=== PATIENT | male | born 1960 | race Caucasian/White ===

== ENCOUNTER 2020-01-12 08:22 | Observation (INO) | payer BC, SELFPAY ==
[2020-01-12] VITALS (19 sets, daily range): BP systolic 111–141; BP diastolic 7–90; PULSE 63–82; RESP 13–26; TEMP 36.4–36.7; O2SAT 89–98; BMI 31.1; BMI 32.5; BMI 34.4
--- NOTE | 2020-01-12 | IR_ITS ---
APPROVED REPORT Patient Location: [facility] Specialist: ROVERTO Musa RT (R) PROCEDURES Left heart catheterization Left ventriculogram Selective coronary angiogram FFR to the right coronary artery INDICATION Unstable angina Informed consent was obtained prior to the procedure. COMPLICATIONS NONE Estimated Blood Loss: LESS THNA 10 ML TECHNIQUE One percent lidocaine used to anesthetize the right anterior aspect of the wrist. The right radial artery was accessed via the Seldinger technique. A 6 American sheath was placed in the right radial artery. 2.5 mg of verapamil, 800 mcg of nitroglycerin, 1mg Lidocaine and 5000 U Heparin were given through the arterial sheath. The trap catheter was also used to perform left heart catheterization, left ventriculogram and selective coronary angiogram. At the end of the diagnostic angiogram therapeutic heparin was administered and and I Grisel right guide catheter was placed in the ascending aorta. The FFR wire was normalized and the catheter was used to intubate the right coronary artery. Adenosine was infused on 2 occasions with the first FFR index reaching 0.82 and the second FFR achieving 0.86. Neither FFR of the right coronary artery reached hemodynamic significance therefore the apparatus was removed the sheath was removed and hemostasis was achieved using TR banding patient was transferred to the postop holding in stable condition ANGIOGRAPHIC RESULTS The left main artery Has an eccentric 10% stenosis The left anterior descending artery Has proximal and mid vessel luminal irregularities with diffuse 10 to 20% stenoses. The circumflex artery Is a nondominant vessel still giving rise to a large 3.5 mm circumflex artery. Mild 10% luminal irregularities are present proximally and distally The right coronary artery Is a large caliber dominant vessel with a proximal concentric 40% stenosis. There is a small branch originating at this plaque which is less than 1 mm in size and has subtotal occlusion proximally. The RV marginal branch is widely patent. Distally the vessel has 10 to 20% luminal irregularities The GARCIA ventriculogram reveals Normal 60% The left ventricular end-diastolic pressure 20 mmHg IMPRESSION Coronary disease as described above Right coronary artery lesion which produced an FFR index between 0.82 and 0.86 Normal ejection fraction Mildly elevated LVEDP PLAN 1. Medical management for coronary disease 2. Recommend aggressive statin therapy with goal LDL less than 55 3. Aggressive risk factor modification 4. Avoidance of tobacco products 5. If the troponin reaches a positive number I would recommend dual antiplatelet therapy for 1 year Electronically signed by : Mikey Stephen, 01/12/2020 14:56:13
--- NOTE | 2020-01-12 08:19 | ECG_ITS ---
APPROVED REPORT Exam: Resting ECG HR:81 bpm ECG Measurements Heart Rate 81 AXES MD 168 P 51 QRSd 140 QRS 46 QT 420 T 38 QTc 487 Conclusion Normal sinus rhythm Right bundle branch block Abnormal ECG Electronically signed by : Chance Wren, 01/12/2020 17:42:27
--- NOTE | 2020-01-12 08:24 | XR_ITS ---
PROCEDURE: XR CHEST PORTABLE CLINICAL HISTORY: chest pain COMPARISON: No exams were available for comparison FINDINGS: The cardiomediastinal silhouette and pulmonary vascularity are within normal limits. The lungs are clear without infiltrates, suspicious nodules, or pleural effusions. No acute bony abnormalities. IMPRESSION: No acute findings. Dictated by: Francisco J Linton MD 01/12/2020 13:58 Francisco J Linton MD in [facility] 01/12/2020 13:58
--- NOTE | 2020-01-12 08:29 | ECG_ITS ---
APPROVED REPORT Exam: Resting ECG HR:78 bpm ECG Measurements Heart Rate 78 AXES IL 172 P 63 QRSd 138 QRS 70 QT 424 T 54 QTc 483 Conclusion Normal sinus rhythm Right bundle branch block Abnormal ECG Electronically signed by : Chance Wren, 01/12/2020 17:42:23
[2020-01-12 08:35] LABS: Basophils # 0.1 K/mm3 (0-0.2); Basophils % 0.7 % (0.1-2.0); Eosinophils # 0.2 K/mm3 (0.0-0.4); Hematocrit 53.1 % (42.0-52.0); Hemoglobin 17.1 g/dL (14.1-18.0); Lymphocytes # 3.9 K/mm3 (0.7-4.5); Lymphocytes % 32.7 % (10-50); Mean Corpuscular HGB Conc 32.3 g/dL (31.8-35.4); Mean Corpuscular Hemoglobin 29.8 pg (27.0-31.2); Mean Corpuscular Volume 92.5 fl (80-94); Mean Platelet Volume 7.5 fl (7.4-10.4); Monocytes # 0.8 K/mm3 (0.1-1.0); Monocytes % 6.9 % (1.7-9.3); Neutrophils # 6.8 K/mm3 (1.8-7.8); Neutrophils % 57.7 % (37.0-80.0); Platelet Count 238 K/mm3 (142-424); Red Blood Count 5.74 M/mm3 (4.60-6.20); Red Cell Distribution Width 13.6 % (11.5-17.5); White Blood Count 11.8 K/mm3 (4.8-10.8)
--- NOTE | 2020-01-12 08:46 | HMH.EDCP ---
ED Disposition Clinical Impression: Chest pain Qualifiers: Ischemic chest pain type: stable angina pectoris Pneumonia Qualifiers: Pneumonia type: due to unspecified organism Laterality: right Lung location: lower lobe of lung Qualified Code(s): J18.9 - Pneumonia, unspecified organism Disposition: Admitted As Inpatient Condition on Discharge: Undetermined Referrals: PCP,No [Non-Staff] - - Critical Care Critical Care Time: No Attestation: On 01/12/20, the high probability of a clinically significant, sudden or life threatening deterioration of the following system(s) required my full and direct attention, intervention and personal management. The time I documented below is in addition to time spent performing reported procedures but includes the following listed in this critical care notation. Medical Decision Making - Jorge Inquiry Pt receiving controlled substance: No Vital Signs: 01/12/20 08:22 01/12/20 08:56 01/12/20 11:22 Temperature 98 F Temperature Source Oral Pulse Rate [Radial] 79 76 69 Respiratory Rate 16 18 20 Blood Pressure [Right Arm] 134/90 134/89 130/90 Blood Pressure Mean [Right Arm] 104 104 103 Blood Pressure Source [Right Arm] Automatic Cuff Automatic Cuff Blood Pressure Position [Right Arm] Sitting Sitting Sitting 02 Sat by Pulse Oximetry 98 89 L 95 Oxygen Delivery Method Room Air Room Air - Lab Data Lab Results 01/12/20 08:25: WBC 11.8 H, RBC 5.74, Hgb 17.1, Hct 53.1 H, MCV 92.5, MCH 29.8, MCHC 32.3, RDW 13.6, Plt Count 238, MPV 7.5, Neut % (Auto) 57.7, Lymph % (Auto) 32.7, [place] % (Auto) 6.9, Eos % (Auto) 2.0, Baso % (Auto) 0.7, Neut # (Auto) 6.8, Lymph # (Auto) 3.9, [place] # (Auto) 0.8, Eos # (Auto) 0.2, Baso # (Auto) 0.1 01/12/20 08:25: Sodium 140, Potassium 4.1, Chloride 105, Carbon Dioxide 25, Anion Gap 14.1, BUN 12, Creatinine 0.80, Estimated Creat Clear 145, Estimated GFR 99, Est GFR ( Amer) 119, Glucose 155 H, Calcium 9.9, Total Bilirubin 0.5, Direct Bilirubin 0.1, Conjugated Bilirubin 0.0, Indirect Bilirubin 0.4, Unconjugated Bilirubin 0.4, AST 31, ALT 42, Alkaline Phosphatase 69, Troponin I < 0.01, Total Protein 7.7, Albumin 4.8 01/12/20 11:20: Troponin I < 0.01 Result diagrams: 01/12/20 08:25 01/12/20 08:25 Orders (Tests/Meds): ED MEDICATIONS Discontinued Medications Generic Name Dose Route Start Last Admin Trade Name Yaya PRN Reason Stop Dose Admin Amoxicillin 875 mg 01/12/20 13:30 Amoxicillin 250mg/5ml 100ml Oral Susp PO 01/12/20 13:31 ONCE ONE Protocol Aspirin 324 mg 01/12/20 08:26 01/12/20 08:27 Aspirin 81mg Chewable Tablet PO 01/12/20 08:27 324 mg ONCE ONE Administration ORDERS Category Date Time Status XR chest portable Stat Exams 01/12/20 08:24 Taken Covid-19 IgG/IgM (H) Stat Lab 01/12/20 13:19 Ordered Troponin I Q3H Lab 01/12/20 14:30 Ordered - Radiology Data #1 Image(s): Chest Image Reviewed: Yes I reviewed the patient's radiology image Preliminary Findings: Abnormal (Right lower lobe infiltrate) - ECG Data Tracing #1 I reviewed this ECG and interpreted as documented below: Normal sinus rhythm rate of 81 right bundle branch block, prolonged QT [address] segment deviation or inappropriate T wave morphology. There is significant artifact in the baseline making it difficult to ascertain appropriate ST segment evaluation of the inferior leads. Normal Sinus Rhythm: Yes Conduction abnormalities present: RBBB, QT prolongation Tracing #2 I reviewed this ECG and interpreted as documented below: Normal sinus rhythm rate of 78 prolonged QT 43 right bundle branch block no significant ST segment deviation or inappropriate T wave morphology Normal Sinus Rhythm: Yes Conduction abnormalities present: RBBB, QT prolongation - TOAN Score for Non-Stemi Age of Patient: 60-69 years old Heart Rate: 70-89 bpm Systolic Blood Pressure: 120-139 mmhg Serum Creatinine: 0.80-1.19 mg/dl CHF Ki
[2020-01-12 08:47] LABS: Chloride 105 mmol/L (98-107); Sodium 140 mmol/L (136-145)
[2020-01-12 08:48] LABS: Potassium 4.1 mmoL/L (3.5-5.1)
[2020-01-12 08:50] LABS: Alanine Aminotransferase 42 U/L (12-78); Alkaline Phosphatase 69 U/L (38-126); Anion Gap 14.1 mEq/L (5-15); Aspartate Amino Transferase 31 U/L (17-59); Bilirubin,Direct 0.1 mg/dl (0.0-0.4); Bilirubin,Indirect 0.4 mg/dL (0.0-0.9); Bilirubin,Total 0.5 mg/dl (0.2-1.3); Bilirubin,Unconjugated 0.4 mg/dL (0.0-1.1); Blood Urea Nitrogen 12 mg/dl (9-20); Carbon Dioxide 25 mmol/L (22.0-30.0); Creatinine Clearance Estimated 145 mL/min (50-200); Estimated Glomerular Filt Rate 99 ml/min (>60); GFR (African American) 119 ML/MIN (>60)
[2020-01-12 08:51] LABS: Albumin Level 4.8 g/dl (3.5-5.0); Calcium 9.9 mg/dl (8.4-10.2); Glucose 155 mg/dl (74-100); Total Protein,Serum 7.7 g/dl (6.3-8.2)
[2020-01-12 09:07] LABS: Troponin I < 0.01 ng/ml (0.00-0.034)
[2020-01-12 11:48] LABS: Troponin I < 0.01 ng/ml (0.00-0.034)
--- NOTE | 2020-01-12 13:03 | PC.NURSE ---
shawn hall in with pt
--- NOTE | 2020-01-12 13:43 | HMH.CNCARD ---
History of Present Illness Consult date: 01/12/20 Consult reason: chest pain Chief complaint: chest pain Additional Medical History:: 1. Hypertension 2. Hyperlipidemia 3. Tobacco use 4. Strong family history of coronary artery disease in first-degree male relatives including his father and older brother in their late 50s to early 60s History of present illness: 59-year-old white male smoker with hypertension and hyperlipidemia presented to the emergency department for recurrent left-sided chest discomfort associated with nausea and dizziness over the last several days. Patient states the symptoms may last from just a few minutes 1 to 2 hours before achieving relief. Symptoms occurred on his way to work this morning and prompted him to come to the ER for further evaluation. Initial troponin is normal but EKG shows sinus rhythm with right bundle branch block with no prior EKG available for comparison. Patient recently had abnormal lexiscan myoview stress test at the [place] with positive EKG changes in leads V2 through V4 and patient having chest pain. Perfusion images were read as being normal with no evidence of ischemia. Patient was placed on a beta-regis, statin and aspirin therapy but has continued to have recurrent episodes. Cardiology consulted for evaluation and recommendations. [facility] History Medical History: Reports:: Hyperlipidemia, Hypertension *Have you ever received a pneumonia vaccine?: Yes *Have you received a flu vaccine this season?: Yes - *Social History Smoking Status: Current every day smoker Tobacco Type: cigarettes # Packs/Day (cigarettes): 1 Alcohol Intake: never Substance Use Type: denies use *Occupational Status:: employed *Travel in the last 8 weeks: None Family Hx:: No significant family history Meds Home Medications Medication Instructions Recorded Confirmed Type Aspirin [Aspirin 81mg EC Tab] 81 mg PO HS 01/12/20 01/12/20 History Atorvastatin Calcium [Lipitor 80mg 40 mg PO HS 01/12/20 01/12/20 History Tab] Metoprolol Succinate [Toprol XL 25 mg PO DAILY 01/12/20 01/12/20 History 50mg Tablet] Allergies Allergy/AdvReac Type Severity Reaction Status Date / Time No Known Allergies Allergy Verified 11/09/17 12:16 Exam Vital signs and Labs for Last 24 Hours: Temp Pulse Resp BP Pulse Ox 98 F 69 20 130/90 95 01/12/20 08:22 01/12/20 11:22 01/12/20 11:22 01/12/20 11:22 01/12/20 11:22 Laboratory Results - last 24 hr 01/12/20 08:25: WBC 11.8 H, RBC 5.74, Hgb 17.1, Hct 53.1 H, MCV 92.5, MCH 29.8, MCHC 32.3, RDW 13.6, Plt Count 238, MPV 7.5, Neut % (Auto) 57.7, Lymph % (Auto) 32.7, [place] % (Auto) 6.9, Eos % (Auto) 2.0, Baso % (Auto) 0.7, Neut # (Auto) 6.8, Lymph # (Auto) 3.9, [place] # (Auto) 0.8, Eos # (Auto) 0.2, Baso # (Auto) 0.1 01/12/20 08:25: Sodium 140, Potassium 4.1, Chloride 105, Carbon Dioxide 25, Anion Gap 14.1, BUN 12, Creatinine 0.80, Estimated Creat Clear 145, Estimated GFR 99, Est GFR ( Amer) 119, Glucose 155 H, Calcium 9.9, Total Bilirubin 0.5, Direct Bilirubin 0.1, Conjugated Bilirubin 0.0, Indirect Bilirubin 0.4, Unconjugated Bilirubin 0.4, AST 31, ALT 42, Alkaline Phosphatase 69, Troponin I < 0.01, Total Protein 7.7, Albumin 4.8 01/12/20 11:20: Troponin I < 0.01 I & O for Last 24 hours: Intake & Output 01/10/20 01/11/20 01/12/20 01/13/20 11:59 11:59 11:59 11:59 Weight 230 lb - Constitutional no acute distress - *Routine HEENT Exam Head: Present: normocephalic Eye: Present: EOMI, PERRL ENT: Present: mucous membranes moist - *Routine Neck Exam Present: supple. Absent: lymphadenopathy - *Routine Respiratory Exam Present: CTA bilaterally - *Routine Cardiovascular Exam Present: RRR - *Routine Abdominal Exam Present: soft, normoactive bowel sounds. Absent: tenderness - *Routine Extremities Exam Absent: cyanosis, clubbing, edema - *Routine Skin Exam Present: warm. Absent: rash - *Routine Neurological
[2020-01-12 14:04] LABS: Coronavirus 19 IgG Antibody Negative (Negative); Coronavirus 19 IgM Antibody Negative (Negative)
[2020-01-12 15:46] LABS: Cholesterol 141 mg/dl (140-200); HDL Cholesterol 35 mg/dl (40-60); Triglycerides 78 mg/dl (30-150); VLDL Cholesterol 16 mg/dL (0-40)
[2020-01-12 15:57] LABS: Direct LDL Cholesterol 90.77 mg/dL (100-129)
[2020-01-12 16:02] LABS: CATHL Activated Clotting Time 285 SEC (74-125)
--- NOTE | 2020-01-12 18:23 | PC.NURSE ---
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 Pt had right radial cath. No stents. Is A&O. Tolerates a cardiac diet. On RA. 18g PIV in left AC noted.
--- NOTE | 2020-01-12 19:16 | PC.NURSE ---
report given to anna
--- NOTE | 2020-01-12 20:30 | PC.NURSE ---
made aware of no public information officer orders at this time. No new orders.
--- NOTE | 2020-01-12 20:59 | HMH.HP ---
*Admission Date: 01/12/20 *Chief complaint: chest pain *History of present illness: 59-year-old white male smoker with hypertension and hyperlipidemia presented to the emergency department for recurrent left-sided chest discomfort associated with nausea and dizziness over the last several days. Patient states the symptoms may last from just a few minutes 1 to 2 hours before achieving relief. Symptoms occurred on his way to work this morning and prompted him to come to the ER for further evaluation. Initial troponin is normal but EKG shows sinus rhythm with right bundle branch block with no prior EKG available for comparison. Patient recently had abnormal lexiscan myoview stress test at the [place] with positive EKG changes in leads V2 through V4 and patient having chest pain. Perfusion images were read as being normal with no evidence of ischemia. Patient was placed on a beta-regis, statin and aspirin therapy but has continued to have recurrent episodes. Cardiology consulted for evaluation and recommendations. Patient was taken to the [facility]. Following findings were noted ANGIOGRAPHIC RESULTS The left main artery Has an eccentric 10% stenosis The left anterior descending artery Has proximal and mid vessel luminal irregularities with diffuse 10 to 20% stenoses. The circumflex artery Is a nondominant vessel still giving rise to a large 3.5 mm circumflex artery. Mild 10% luminal irregularities are present proximally and distally The right coronary artery Is a large caliber dominant vessel with a proximal concentric 40% stenosis. There is a small branch originating at this plaque which is less than 1 mm in size and has subtotal occlusion proximally. The RV marginal branch is widely patent. Distally the vessel has 10 to 20% luminal irregularities The GARCIA ventriculogram reveals Normal 60% The left ventricular end-diastolic pressure 20 mmHg IMPRESSION Coronary disease as described above Right coronary artery lesion which produced an FFR index between 0.82 and 0.86 Normal ejection fraction Mildly elevated LVEDP [facility] History Medical History: Reports:: Hyperlipidemia, Hypertension Denies:: Cancer, Diabetes Mellitus Type 1, Diabetes Mellitus Type 2, Internal Pacemaker, MRSA *Have you ever received a pneumonia vaccine?: No *Have you received a flu vaccine this season?: No Other Surgeries: Yes: Cardiac Catheterization. No: Pacemaker Amputation: No - *Social History Smoking Status: Current every day smoker Tobacco Type: cigarettes # Packs/Day (cigarettes): 1 Alcohol Intake: never Substance Use Type: denies use *Occupational Status:: employed Household Members: spouse *Travel in the last 8 weeks: None Family Hx:: No significant family history Review of Systems - Constitutional Reports lack of energy, Reports malaise, Denies anorexia - Eyes Denies change in vision - ENT Denies abnormal hearing - *Cardiovascular Reports chest pain, Reports chest pain at rest, Reports chest pain with activity, Reports rapid, pounding, or irregular heartbeat - *Respiratory Denies chest congestion - *Gastrointestinal Denies abdominal pain - *Genitourinary Denies difficulty urinating - *Musculoskeletal Denies abnormal walking - Integumentary/Breasts Denies change in skin color, Denies yellowing of the skin, Denies new lesions - *Neurologic Reports unsteadiness, Reports dizziness, Denies abnormal walking, Denies abnormal hearing - Psychiatric Denies abnormal sleep pattern, Denies depression, Denies hopelessness - Endocrine Denies cold intolerance, Denies excessive sweating - Hematologic/Lymphatic Denies easy bleeding, Denies easy bruising - Allergic/Immunologic Denies hives Meds Home Medications Medication Instructions Recorded Confirmed Type Aspirin [Aspirin 81mg EC Tab] 81 mg PO HS 01/12/20 01/12/20 History Atorvastatin Calcium [Lipitor 80mg 40 mg PO HS 01/12/20 01/12/20 History Tab] M
[2020-01-13] VITALS: BP 112/61; PULSE 72; RESP 22; TEMP 36.8; O2SAT 94
--- NOTE | 2020-01-13 04:14 | PC.NURSE ---
Pt is alert and oriented x4. No acute changes noted from previous shift. No c/o pain thus far this shift. Pt has rested well with eyes closed. Right radial cath site dsg noted c/d/i. No s/s of hematoma noted. Denies tenderness with palpation. Encouraged pt not to bear weight with right wrist at this time. Pt verbalized understanding. Tolerated RA well with no c/o SOA. RR noted even and unlabored. Bilateral lungs noted clear t/o upon auscultation. Tolerates ambulation well independently. No edema noted. Refused TEDS. VSS. Remains safe. Call light within reach. Will continue to monitor.
[2020-01-13 04:17] VITALS: BP 131/64; PULSE 66; RESP 20; TEMP 36.7; O2SAT 94
[2020-01-13 04:50] VITALS: BMI 35.0
[2020-01-13 05:59] LABS: Basophils % 0.4 % (0.1-2.0); Eosinophils # 0.4 K/mm3 (0.0-0.4); Eosinophils % 3.1 % (0.1-12.0); Hematocrit 48.4 % (42.0-52.0); Hemoglobin 15.9 g/dL (14.1-18.0); Lymphocytes % 35.8 % (10-50); Mean Corpuscular HGB Conc 32.9 g/dL (31.8-35.4); Mean Corpuscular Hemoglobin 30.1 pg (27.0-31.2); Mean Corpuscular Volume 91.5 fl (80-94); Mean Platelet Volume 7.5 fl (7.4-10.4); Monocytes # 0.8 K/mm3 (0.1-1.0); Monocytes % 7.2 % (1.7-9.3); Neutrophils % 53.5 % (37.0-80.0); Platelet Count 212 K/mm3 (142-424); Red Blood Count 5.29 M/mm3 (4.60-6.20); Red Cell Distribution Width 13.8 % (11.5-17.5); White Blood Count 11.2 K/mm3 (4.8-10.8)
[2020-01-13 06:19] LABS: Chloride 103 mmol/L (98-107); Potassium 4.1 mmoL/L (3.5-5.1); Sodium 136 mmol/L (136-145)
[2020-01-13 06:22] LABS: Alanine Aminotransferase 30 U/L (12-78); Albumin Level 3.6 g/dl (3.5-5.0); Albumin/Globulin Ratio 1.4 (1.1-1.8); Alkaline Phosphatase 58 U/L (38-126); Anion Gap 10.1 mEq/L (5-15); Aspartate Amino Transferase 26 U/L (17-59); Bilirubin,Total 0.3 mg/dl (0.2-1.3); Blood Urea Nitrogen 17 mg/dl (9-20); Carbon Dioxide 27 mmol/L (22.0-30.0); Creatinine Clearance Estimated 148 mL/min (50-200); Estimated Glomerular Filt Rate 86 ml/min (>60); GFR (African American) 104 ML/MIN (>60); Globulin 2.5 g/dL (1.3-3.2); Glucose 180 mg/dl (74-100); Total Protein,Serum 6.1 g/dl (6.3-8.2)
[2020-01-13 06:23] LABS: Magnesium 1.9 mg/dl (1.6-2.3)
[2020-01-13 07:23] LABS: Calcium 8.7 mg/dl (8.4-10.2)
--- NOTE | 2020-01-13 07:32 | P.CONPHA_ITS ---
[facility] Pharmacy VTE Monitoring - Patient Demographics Admission date: 01/12/20 Report Date: 01/13/20 Time: 07:32 Allergies/Adverse Reactions: Patient Allergies No Known Allergies Allergy (Verified 11/09/17 12:16) Height: 1.85 m Weight: 119.947 kg Patient Problems: Current Active Problems Chest pain (Acute) Pneumonia (Acute) Unstable angina (Acute) Abnormal nuclear stress test (Acute) Hypertension (Acute) Hyperlipidemia (Acute) Tobacco use disorder, continuous (Acute) - VTE Risk Labs: VTE Related Lab Results Hgb 15.9 g/dL (14.1-18.0) 01/13/20 05:46 Hct 48.4 % (42.0-52.0) 01/13/20 05:46 Plt Count 212 K/mm3 (142-424) 01/13/20 05:46 BUN 17 mg/dl (9-20) D 01/13/20 05:46 Creatinine 0.90 mg/dl (0.66-1.25) 01/13/20 05:46 Estimated Creat Clear 148 mL/min (50-200) 01/13/20 05:46 Was VTE Risk Assessment Performed: Yes VTE Score: 2 VTE Risk Level: Very Low Risk - Prophylaxis VTE Prophylaxis Ordered?: Yes Types of VTE Prophylaxis: IPCS Thigh High Location of Applied Device: Bilateral Lower Extremeties
--- NOTE | 2020-01-13 07:46 | HMH.PNCARD ---
Subjective Date: 01/13/20 Time: 07:46 Principal diagnosis: Angina pectoris Interval history: 59-year-old white male at bedside eating breakfast in no acute distress. Chest discomfort has resolved overnight. Results of his cardiac catheterization was reviewed and questions answered. Also discussed his right bundle branch block. No need for pacemaker at this time. Exam Vital signs and Labs for Last 24 Hours: Temp Pulse Resp BP Pulse Ox 98.0 F 66 20 131/64 94 L 01/13/20 04:17 01/13/20 04:17 01/13/20 04:17 01/13/20 04:17 01/13/20 04:17 Laboratory Results - last 24 hr 01/12/20 08:20: Triglycerides 78, Cholesterol 141, LDL Cholesterol Direct 90.77 L, VLDL Cholesterol 16, HDL Cholesterol 35 L, Cholesterol/HDL Ratio 4.0 H 01/12/20 08:25: WBC 11.8 H, RBC 5.74, Hgb 17.1, Hct 53.1 H, MCV 92.5, MCH 29.8, MCHC 32.3, RDW 13.6, Plt Count 238, MPV 7.5, Neut % (Auto) 57.7, Lymph % (Auto) 32.7, [place] % (Auto) 6.9, Eos % (Auto) 2.0, Baso % (Auto) 0.7, Neut # (Auto) 6.8, Lymph # (Auto) 3.9, [place] # (Auto) 0.8, Eos # (Auto) 0.2, Baso # (Auto) 0.1 01/12/20 08:25: Sodium 140, Potassium 4.1, Chloride 105, Carbon Dioxide 25, Anion Gap 14.1, BUN 12, Creatinine 0.80, Estimated Creat Clear 145, Estimated GFR 99, Est GFR ( Amer) 119, Glucose 155 H, Calcium 9.9, Total Bilirubin 0.5, Direct Bilirubin 0.1, Conjugated Bilirubin 0.0, Indirect Bilirubin 0.4, Unconjugated Bilirubin 0.4, AST 31, ALT 42, Alkaline Phosphatase 69, Troponin I < 0.01, Total Protein 7.7, Albumin 4.8 01/12/20 08:25: SARS-CoV-2 IgG Ab (Rapid) Negative, SARS-CoV-2 IgM Ab (Rapid) Negative 01/12/20 11:20: Troponin I < 0.01 01/12/20 15:33: Activated Clotting Time 285 H* 01/13/20 05:46: WBC 11.2 H, RBC 5.29, Hgb 15.9, Hct 48.4, MCV 91.5, MCH 30.1, MCHC 32.9, RDW 13.8, Plt Count 212, MPV 7.5, Neut % (Auto) 53.5, Lymph % (Auto) 35.8, [place] % (Auto) 7.2, Eos % (Auto) 3.1, Baso % (Auto) 0.4, Neut # (Auto) 6.0, Lymph # (Auto) 4.0, [place] # (Auto) 0.8, Eos # (Auto) 0.4, Baso # (Auto) 0.0 01/13/20 05:46: Sodium 136, Potassium 4.1, Chloride 103, Carbon Dioxide 27, Anion Gap 10.1, BUN 17 D, Creatinine 0.90, Estimated Creat Clear 148, Estimated GFR 86, Est GFR ( Amer) 104, Glucose 180 H, Calcium 8.7 D, Magnesium 1.9, Total Bilirubin 0.3, AST 26, ALT 30 D, Alkaline Phosphatase 58, Total Protein 6.1 L, Albumin 3.6 D, Globulin 2.5, Albumin/Globulin Ratio 1.4 I & O for Last 24 hours: Intake & Output 01/10/20 01/11/20 01/12/20 01/13/20 11:59 11:59 11:59 11:59 Intake Total Balance Weight 230 lb 264 lb 7 oz - Constitutional no acute distress - *Routine HEENT Exam Head: Present: normocephalic Eye: Present: EOMI, PERRL ENT: Present: mucous membranes moist - *Routine Neck Exam Present: supple. Absent: lymphadenopathy - *Routine Respiratory Exam Present: CTA bilaterally - *Routine Cardiovascular Exam Present: RRR - *Routine Abdominal Exam Present: soft, normoactive bowel sounds. Absent: tenderness - *Routine Extremities Exam Absent: cyanosis, clubbing, edema - *Routine Skin Exam Present: warm. Absent: rash - *Routine Neurological Exam Present: alert, oriented X3 Progress Note: A&P (1) Unstable angina Status: Acute (2) Abnormal nuclear stress test Status: Acute (3) Hypertension Status: Acute (4) Hyperlipidemia Status: Acute (5) Tobacco use disorder, continuous Status: Acute (6) Chest pain Status: Acute Assessment and Plan for All Diagnoses:: 1. Unstable angina pectoris with no acute myocardial infarction. Cardiac catheterization revealed mild to moderate macrovascular disease with occluded microvascular disease with recommendation for medical therapy. 2. Hypertension, controlled 3. Hyperlipidemia, statin therapy has been started 4. Tobacco use, cessation recommended Patient is stable from a cardiovascular standpoint for discharge home. Follow-up in our office in 1 week Medication recommendations
[2020-01-13 08:00] VITALS: BP 132/84; PULSE 74; RESP 18; TEMP 36.7; O2SAT 94
[2020-01-13 09:00] VITALS: O2SAT 94
--- NOTE | 2020-01-13 12:29 | HMH.DCSUM ---
General - General Admission date:: 01/12/20 Discharge date: 01/13/20 HPI HPI: 59-year-old white male smoker with hypertension and hyperlipidemia presented to the emergency department for recurrent left-sided chest discomfort associated with nausea and dizziness over the last several days. Patient states the symptoms may last from just a few minutes 1 to 2 hours before achieving relief. Symptoms occurred on his way to work this morning and prompted him to come to the ER for further evaluation. Initial troponin is normal but EKG shows sinus rhythm with right bundle branch block with no prior EKG available for comparison. Patient recently had abnormal lexiscan myoview stress test at the [facility] with positive EKG changes in leads V2 through V4 and patient having chest pain. Perfusion images were read as being normal with no evidence of ischemia. Patient was placed on a beta-regis, statin and aspirin therapy but has continued to have recurrent episodes. Cardiology consulted for evaluation and recommendations. Patient was taken to the [facility]. Following findings were noted ANGIOGRAPHIC RESULTS The left main artery Has an eccentric 10% stenosis The left anterior descending artery Has proximal and mid vessel luminal irregularities with diffuse 10 to 20% stenoses. The circumflex artery Is a nondominant vessel still giving rise to a large 3.5 mm circumflex artery. Mild 10% luminal irregularities are present proximally and distally The right coronary artery Is a large caliber dominant vessel with a proximal concentric 40% stenosis. There is a small branch originating at this plaque which is less than 1 mm in size and has subtotal occlusion proximally. The RV marginal branch is widely patent. Distally the vessel has 10 to 20% luminal irregularities The GARCIA ventriculogram reveals Normal 60% The left ventricular end-diastolic pressure 20 mmHg IMPRESSION Coronary disease as described above Right coronary artery lesion which produced an FFR index between 0.82 and 0.86 Normal ejection fraction Mildly elevated LVEDP Hospital Course Hospital Course: Laboratory Tests 01/12/20 01/12/20 01/12/20 08:20 08:25 08:25 WBC 11.8 H RBC 5.74 Hgb 17.1 Hct 53.1 H MCV 92.5 MCH 29.8 MCHC 32.3 RDW 13.6 Plt Count 238 MPV 7.5 Neut % (Auto) 57.7 Lymph % (Auto) 32.7 [place] % (Auto) 6.9 Eos % (Auto) 2.0 Baso % (Auto) 0.7 Neut # (Auto) 6.8 Lymph # (Auto) 3.9 [place] # (Auto) 0.8 Eos # (Auto) 0.2 Baso # (Auto) 0.1 Activated Clotting Time Sodium 140 Potassium 4.1 Chloride 105 Carbon Dioxide 25 Anion Gap 14.1 BUN 12 Creatinine 0.80 Estimated Creat Clear 145 Estimated GFR 99 Est GFR ( Amer) 119 Glucose 155 H Calcium 9.9 Magnesium Total Bilirubin 0.5 Direct Bilirubin 0.1 Conjugated Bilirubin 0.0 Indirect Bilirubin 0.4 Unconjugated Bilirubin 0.4 AST 31 ALT 42 Alkaline Phosphatase 69 Troponin I < 0.01 Total Protein 7.7 Albumin 4.8 Globulin Albumin/Globulin Ratio Triglycerides 78 Cholesterol 141 LDL Cholesterol Direct 90.77 L VLDL Cholesterol 16 HDL Cholesterol 35 L Cholesterol/HDL Ratio 4.0 H SARS-CoV-2 IgG Ab (Rapid) SARS-CoV-2 IgM Ab (Rapid) 01/12/20 01/12/20 01/12/20 08:25 11:20 15:33 WBC RBC Hgb Hct MCV MCH MCHC RDW Plt Count MPV Neut % (Auto) Lymph % (Auto) [place] % (Auto) Eos % (Auto) Baso % (Auto) Neut # (Auto) Lymph # (Auto) [place] # (Auto) Eos # (Auto) Baso # (Auto) Activated Clotting Time 285 H* Sodium Potassium Chloride Carbon Dioxide Anion Gap BUN Creatinine Estimated Creat Clear Estimated GFR Est GFR ( Amer) Glucose Calcium Magnesium Total Bilirubin Direct Bilirubin Conjugated Bilirubin
--- NOTE | 2020-01-13 14:20 | PC.NURSE ---
DISCUSSED DISCHARGE INSTRUCTIONS WITH PT ALONG WITH MEDICATIONS AND FOLLOW UP APPOINTMENTS. DISCUSSED RESTRICTIONS FROM HEART CATH. PT VERBALIZED UNDERSTANDING OF ALL INFORMATION. PHARMACY EDUCATED PT ON MEDICATIONS. IV WAS REMOVED WITH CATHETER INTACT. KOBAN AND 4X4S APPLIED. PT HAD NO COMPLAINTS OF PAIN OR SOB THIS SHIFT. PT IS CURRENTLY WAITING TO BE DISCHARGED. BED IN LOWEST POSITION. CALL LIGHT WITHIN REACH. VSS. WILL CONTINUE TO MONITOR.
== END 2020-01-13 14:25 | disposition home or self-care (01) ==
LOC: ER 13:35 → CATHLAB 13:42 → 2ND 13:51
PROVIDERS: Internal Medicine; Physician Assistant; Admitting Provider Family Medicine; Emergency Provider Student in an Organized Health Care Education/Training Program; PCP Family Medicine; Visit Provider Family Medicine
DX: I25.110 Atherosclerotic heart disease of native coronary artery with unstable angina pectoris (principal); I10 Essential (primary) hypertension; Z72.0 Tobacco use; E78.5 Hyperlipidemia, unspecified; R94.39 Abnormal result of other cardiovascular function study
CPT/HCPCS: 36415; 71045; 80048; 80053; 80061; 80076; 83735; 84484; 85025; 85347; 86328; 93005; 93458; 93571; 99152; 99153; 99284; C1725; C1769; G0378; J0153; J1644; Q9967

== ENCOUNTER → 2020-01-31 07:47 | Outpatient (CLI) | payer BC, SELFPAY ==
--- NOTE | 2020-01-31 07:47 | US_ITS ---
PROCEDURE: US ABDOMEN COMPLETE CLINICAL INDICATION: ascites COMPARISON: No exams were available for comparison FINDINGS: PANCREAS: Unremarkable. No obvious mass or abnormal fluid collection. No ductal dilatation LIVER: No focal liver lesions demonstrated. Homogeneous echogenicity. No intrahepatic biliary ductal dilatation evident. There is appropriate direction of blood flow within a non dilated portal vein RIGHT KIDNEY: Unremarkable. Normal size and echogenicity. No hydronephrosis LEFT KIDNEY: Unremarkable. Normal size and echogenicity. No hydronephrosis GALLBLADDER: No gallstones, gallbladder wall thickening, pericholecystic fluid, or biliary dilatation. AORTA: There is questionable dilatation of the infrarenal abdominal aorta versus artifact. The lumen of the aorta measures 2 cm thick and with questionable thrombus posteriorly make in the aorta measuring a total of 3 cm. This may very well represent artifact. CT may confirm. SPLEEN: Unremarkable. Normal size and echogenicity ASCITES: None demonstrated. IMPRESSION: Questionable dilatation of the abdominal aorta which may be better evaluated with CT otherwise negative abdominal ultrasound. Dictated by: Francisco J Linton MD 01/31/2020 09:17 Francisco J Linton MD in [place] 01/31/2020 09:17
== END ==
PROVIDERS: PCP Family Medicine; Visit Provider Family Medicine
DX: R18.8 Other ascites (principal); Z13.6 Encounter for screening for cardiovascular disorders
CPT/HCPCS: 76700

== ENCOUNTER 2020-07-19 06:39 | Emergency (ER) | payer BC, SELFPAY ==
[2020-07-19] VITALS (11 sets, daily range): BP systolic 91–138; BP diastolic 51–85; PULSE 65–73; RESP 12–20; TEMP 36.4; O2SAT 94–96; BMI 34.2
--- NOTE | 2020-07-19 06:32 | ECG_ITS ---
APPROVED REPORT Exam: Resting ECG HR:72 bpm ECG Measurements Heart Rate 72 AXES NV 174 P 62 QRSd 142 QRS 62 QT 426 T 42 QTc 466 Conclusion Normal sinus rhythm Right bundle branch block Abnormal ECG Electronically signed by : Chance Wren, 07/20/2020 09:07:16
--- NOTE | 2020-07-19 06:50 | XR_ITS ---
PROCEDURE: XR CHEST 2V CLINICAL HISTORY: left anterior cp COMPARISON: No exams were available for comparison FINDINGS: The cardiomediastinal silhouette and pulmonary vascularity are within normal limits. The lungs are clear without infiltrates, suspicious nodules, or pleural effusions. Minimal upper thoracic curvature convex left and mild degenerative changes of the thoracic spine IMPRESSION: No acute findings. Dictated by: Francisco J Linton MD 07/19/2020 08:13 Francisco J Linton MD in [place] 07/19/2020 08:13
[2020-07-19 07:01] LABS: Adenovirus,PCR Not Detected (NotDetected); Bordetella Pertussis Not Detected (NotDetected); Chlamydophila Pneumoniae, PCR Not Detected (NotDetected); Coronavirus 19, PCR Not Detected (NotDetected); Coronavirus 229E Not Detected (NotDetected); Coronavirus NL63 Not Detected (NotDetected); Coronavirus OC43 Not Detected (NotDetected); Coronovirus HKU1,PCR Not Detected (NotDetected); Human Metapneumovirus Not Detected (NotDetected); Influenza A, PCR Not Detected (NotDetected); Influenza AH1, 2009 Not Detected (NotDetected); Influenza AH1, PCR Not Detected (NotDetected); Influenza AH3,PCR Not Detected (NotDetected); Influenza B, PCR Not Detected (NotDetected); Mycoplasma Pneumoniae, PCR Not Detected (NotDetected); Parainfluenza 1, PCR Not Detected (NotDetected); Parainfluenza 2, PCR Not Detected (NotDetected); Parainfluenza 3, PCR Not Detected (NotDetected); Parainfluenza 4, PCR Not Detected (NotDetected); Respiratory Syncytial Virus Not Detected (NotDetected); Rhinovirus/Enterovirus Not Detected (NotDetected)
--- NOTE | 2020-07-19 07:05 | PC.NURSE ---
PT TO RADIOLOGY FOR CHEST XRAY
[2020-07-19 07:08] LABS: Basophils # 0.1 K/mm3 (0-0.2); Basophils % 0.5 % (0.1-2.0); Eosinophils # 0.3 K/mm3 (0.0-0.4); Eosinophils % 1.9 % (0.1-12.0); Hematocrit 50.3 % (42.0-52.0); Hemoglobin 16.5 g/dL (14.1-18.0); Lymphocytes % 35.8 % (10-50); Mean Corpuscular HGB Conc 32.8 g/dL (31.8-35.4); Mean Corpuscular Hemoglobin 29.7 pg (27.0-31.2); Mean Corpuscular Volume 90.6 fl (80-94); Mean Platelet Volume 7.9 fl (7.4-10.4); Neutrophils # 7.7 K/mm3 (1.8-7.8); Neutrophils % 54.8 % (37.0-80.0); Platelet Count 253 K/mm3 (142-424); Red Blood Count 5.55 M/mm3 (4.60-6.20); Red Cell Distribution Width 13.8 % (11.5-17.5)
[2020-07-19 07:10] LABS: Anion Gap 12.2 mEq/L (5-15); Blood Urea Nitrogen 19 mg/dl (9-20); Calcium 8.9 mg/dl (8.4-10.2); Carbon Dioxide 24 mmol/L (22.0-30.0); Chloride 106 mmol/L (98-107); Creatinine Clearance Estimated 164 mL/min (50-200); Estimated Glomerular Filt Rate 99 ml/min (>60); GFR (African American) 119 ML/MIN (>60); Glucose 131 mg/dl (74-100); Potassium 4.2 mmoL/L (3.5-5.1); Sodium 138 mmol/L (136-145)
[2020-07-19 07:11] LABS: Alanine Aminotransferase 34 U/L (12-78); Albumin Level 4.5 g/dl (3.5-5.0); Alkaline Phosphatase 74 U/L (38-126); Aspartate Amino Transferase 27 U/L (17-59); Bilirubin,Direct 0.4 mg/dl (0.0-0.4); Bilirubin,Indirect 0.1 mg/dL (0.0-0.9); Bilirubin,Total 0.5 mg/dl (0.2-1.3); Bilirubin,Unconjugated 0.1 mg/dL (0.0-1.1); Total Protein,Serum 7.1 g/dl (6.3-8.2)
[2020-07-19 07:20] LABS: NT Pro Brain Natriuretic Pep. 19.7 pg/mL (0-125)
[2020-07-19 07:24] LABS: Troponin I < 0.01 ng/ml (0.00-0.034)
--- NOTE | 2020-07-19 07:34 | HMH.EDCP ---
ED Disposition Clinical Impression: Unstable angina pectoris, Obesity (BMI 30-39.9), Tobacco use, Right bundle branch block Disposition: Home, Self-Care Condition on Discharge: Good Instructions: DI for Chest Pain Additional Instructions: use meds and see card for follow up Referrals: Mohinder Portillo MD [Primary Care Provider] - - Critical Care Critical Care Time: No Attestation: On 07/19/20, the high probability of a clinically significant, sudden or life threatening deterioration of the following system(s) required my full and direct attention, intervention and personal management. The time I documented below is in addition to time spent performing reported procedures but includes the following listed in this critical care notation. Medical Decision Making - Medical Records Medical records reviewed: Yes: I reviewed the patient's medical records. - Jorge Inquiry Pt receiving controlled substance: No Vital Signs: 07/19/20 06:41 07/19/20 06:50 07/19/20 06:59 Temperature 97.6 F Temperature Source Oral Pulse Rate 69 70 Pulse Rate [Right Brachial] 73 Respiratory Rate 18 17 12 Blood Pressure 117/73 128/76 Blood Pressure [Right Arm] 138/85 Blood Pressure Mean 87 82 Blood Pressure Mean [Right Arm] 102 Blood Pressure Source [Right Arm] Automatic Cuff Blood Pressure Position [Right Arm] Sitting 02 Sat by Pulse Oximetry 96 95 95 Oxygen Delivery Method Room Air - Lab Data Lab results reviewed: Yes: I reviewed the patient's lab results. Lab Results 07/19/20 06:40: WBC 14.0 H, RBC 5.55, Hgb 16.5, Hct 50.3, MCV 90.6, MCH 29.7, MCHC 32.8, RDW 13.8, Plt Count 253, MPV 7.9, Neut % (Auto) 54.8, Lymph % (Auto) 35.8, [place] % (Auto) 7.0, Eos % (Auto) 1.9, Baso % (Auto) 0.5, Neut # (Auto) 7.7, Lymph # (Auto) 5.0 H, [place] # (Auto) 1.0, Eos # (Auto) 0.3, Baso # (Auto) 0.1 07/19/20 06:40: Sodium 138, Potassium 4.2, Chloride 106, Carbon Dioxide 24, Anion Gap 12.2, BUN 19, Creatinine 0.80, Estimated Creat Clear 164, Estimated GFR 99, Est GFR ( Amer) 119, Glucose 131 H, Calcium 8.9, Troponin I < 0.01 07/19/20 06:40: Total Bilirubin 0.5, Direct Bilirubin 0.4, Conjugated Bilirubin 0.0, Indirect Bilirubin 0.1, Unconjugated Bilirubin 0.1, AST 27, ALT 34, Alkaline Phosphatase 74, Total Protein 7.1, Albumin 4.5 07/19/20 06:40: NT-Pro-B Natriuret Pep 19.7 Result diagrams: 07/19/20 06:40 07/19/20 06:40 Orders (Tests/Meds): ED MEDICATIONS Generic Name Dose Route Start Last Admin Trade Name Freq PRN Reason Stop Dose Admin Nitroglycerin 0.4 mg 07/19/20 06:50 07/19/20 06:45 Nitroglycerin 0.4mg Sl Tablet SL 08/18/20 06:49 0.4 mg Q5MINP PRN Administration Chest Pain Discontinued Medications Generic Name Dose Route Start Last Admin Trade Name Freq PRN Reason Stop Dose Admin Aspirin 243 mg 07/19/20 06:50 07/19/20 06:45 Aspirin 81mg Chewable Tablet PO 07/19/20 06:51 243 mg ONCE ONE Administration Nitroglycerin 1 gm 07/19/20 06:50 07/19/20 06:40 Nitroglycerin 1 Gm Ointment TD 07/19/20 06:51 1 gm ONCE ONE Administration ORDERS Category Date Time Status Full Resp Panel w/COVID ([facility]) Routine Lab 07/19/20 06:50 Received Troponin I Q3H Lab 07/19/20 10:00 Ordered Troponin I Q3H Lab 07/19/20 13:00 Ordered CA echo doppler complete Stat Y 07/19/20 08:25 Ordered - Radiology Data #1 Image(s): Chest Image Reviewed: Yes I reviewed the patient's radiology image Preliminary Findings: Normal/NAD - ECG Data Tracing #1 Normal Sinus Rhythm: Yes Ischemic changes: non-specific ST-T wave changes Conduction abnormalities present: RBBB - Physician Consults Physician Consulted: jeni Reason -: Pt condition Medical Decision Narrative: pt with recent cath and has no stents has been compliant with meds but continues to smoke - if echo and sec trop ok will d/c on new meds and f/u at [facility] Chest Pain HPI - General Chief Complaint: Chest Baljeet
--- NOTE | 2020-07-19 08:24 | PC.NURSE ---
shawn hall in to see pt
--- NOTE | 2020-07-19 08:25 | CA_ITS ---
APPROVED REPORT EXAM: Comprehensive 2D, Doppler, and color-flow Echocardiogram Mgmt Analyst: CINDY Schwartz, RVS Ht: 6 ft 1 in Wt: 260lbs BSA: 2.41 BP: 128/76 mmHg Indications: cad, cp x 3 days, smoker Echo Enhancing Agent Comments: Poor Acoustics through parasternal windows 2D Dimensions IVSd 0.92 cm LVEF (Visual) 57.30 % PWd 0.94 cm LA Volume 34.20 mL LVDd 4.82 cm LA Volume Index 14.20 mL/m2 (M/F) 16-34 LVDs 3.37 cm LVOT 2.23 cm (M/F) 1.5-2.5 M-Mode Dimensions LA Diam 3.64 cm (1.9-4.0) Ao Diam 3.93 cm (2.0-3.7) EPSs 1.07 cm TAPSE 2.04 (<1.7) LV Diastology E Decel Time 337.00 (160-240 msec) E/A Ratio 0.84 MED E' 8.60 (< 7 cm/sec) MED A' 11.20 cm/s E'/MED E' Ratio 5.43 (>14) LAT E' 9.20 (<10 cm/sec) LAT A' 10.40 cm/s E/LAT E' Ratio 5.08 (>14) Aortic Valve LVOT Max 92.00 (70-110 cm/s) LVOT VTI 18.36 cm AoV Peak Jatinder. 127.00 (50-130 cm/s) AO Peak GR. 6.60 mmHg AO Mean GR. 3.70 (<5 mmHg) AO VTI 23.11 (18-25 cm) ARON (VTI) 3.10 (2.5-4.5 cm2) Mitral Valve MV A Velocity 55.00 (40-130 cm/s) E/A Ratio 0.84 MV Decel. Time 337.00 (160-240 ms) Pulmonary Valve PV Peak Velocity 62.00 (50-150 cm/s) Tricuspid Valve TR P. Velocity 192.00 cm/s RAP Estimate 10.00 mmHg RVSP 24.70 mmHg Left Ventricle Left atrium is normal size, left ventricle is normal size, there is preserved left ventricular systolic function, visually estimated ejection fraction 55% with no obvious regional wall motion abnormality, Doppler evidence of impaired LV relaxation seen. Right Ventricle Right atrium and right ventricular qualitatively mildly enlarged with normal contractility. Aortic Valve Aortic valve is grossly normal, there is no aortic stenosis or aortic insufficiency. Mitral Valve Mitral valve is grossly normal, there is trace mitral regurgitation. Tricuspid Valve Tricuspid valve grossly normal, there is trace tricuspid regurgitation, tricuspid regurgitation jet velocity is inadequate for calculation of the right ventricular systolic pressure. Pulmonic Valve Pulmonic valve is poorly visualized. Great Vessels Aortic root is normal size. Pericardium No significant pericardial effusion noted. Conclusion 1. Normal left ventricular size, preserved left ventricular systolic function, visually estimated ejection fraction 55% with no regional wall motion abnormality, Doppler evidence of impaired LV relaxation seen. 2. Mildly enlarged right ventricle with normal contractility. 3. Trace mitral and tricuspid regurgitation. 4. No significant pericardial effusion noted. Electronically signed by : Ru Tenorio, 07/19/2020 15:55:18
--- NOTE | 2020-07-19 08:27 | PC.NURSE ---
vascular called for echo
--- NOTE | 2020-07-19 08:30 | HMH.CNCARD ---
History of Present Illness Consult date: 07/19/20 Requesting physician: Bari Espino Consult reason: chest pain Chief complaint: Chest pain Additional Medical History:: 1. Hypertension 2. Hyperlipidemia, on statin therapy 3. Continued tobacco use 4. GERD, on PPI therapy 5. Coronary artery disease A. Left heart catheterization, 01/2020, ANGIOGRAPHIC RESULTS The left main artery Has an eccentric 10% stenosis The left anterior descending artery Has proximal and mid vessel luminal irregularities with diffuse 10 to 20% stenoses. The circumflex artery Is a nondominant vessel still giving rise to a large 3.5 mm circumflex artery. Mild 10% luminal irregularities are present proximally and distally The right coronary artery Is a large caliber dominant vessel with a proximal concentric 40% stenosis. There is a small branch originating at this plaque which is less than 1 mm in size and has subtotal occlusion proximally. The RV marginal branch is widely patent. Distally the vessel has 10 to 20% luminal irregularities The GARCIA ventriculogram reveals Normal 60% The left ventricular end-diastolic pressure 20 mmHg IMPRESSION Coronary disease as described above Right coronary artery lesion which produced an FFR index between 0.82 and 0.86 Normal ejection fraction Mildly elevated LVEDP PLAN 1. Medical management for coronary disease 2. Recommend aggressive statin therapy with goal LDL less than 55 3. Aggressive risk factor modification 4. Avoidance of tobacco products 5. If the troponin reaches a positive number I would recommend dual antiplatelet therapy for 1 year Electronically signed by : Mikey Stephen, 01/12/2020 14:56:13 History of present illness: 59-year-old white male with history of multiple cardiac risk factors and recent cardiac catheterization in January 2020 with FFR of 40% RCA lesion that did not meet criteria for stenting presented to the emergency department at the insistence of his for recurrent chest pain at rest over the last 3 days. Patient denies any chest pain with activity but states that this episodes of chest tightness and diaphoresis at night that have not awakened him from sleep but have been noted during his multiple episodes of waking at night. Patient admits to falling back into old dietary habits including drinking more soda rather than water and continuing to smoke. Initial troponin is normal. EKG is sinus rhythm with right bundle branch block and no acute ST segment changes. Chest x-ray is negative. Cardiology consulted for evaluation recommendations. [facility] History Medical History: Reports:: Gastroesophageal Reflux Disease(GERD), Hyperlipidemia, Hypertension, Migraine Denies:: Cancer, Diabetes Mellitus Type 1, Diabetes Mellitus Type 2, Internal Pacemaker, MRSA *Have you ever received a pneumonia vaccine?: No *Have you received a flu vaccine this season?: No Other Surgeries: Yes: Cardiac Catheterization. No: Pacemaker Amputation: No - *Social History Smoking Status: Current every day smoker Tobacco Type: cigarettes # Packs/Day (cigarettes): 1 Alcohol Intake: never Substance Use Type: denies use *Occupational Status:: employed Household Members: spouse *Travel in the last 8 weeks: [place] Family Hx:: Coronary Artery Disease, Heart Attack, Cancer Meds Home Medications Medication Instructions Recorded Confirmed Type Aspirin [Aspirin 81mg chewable 81 mg PO DAILY 07/19/20 07/19/20 History tab] Atorvastatin Calcium [Lipitor 40mg 40 mg PO HS 07/19/20 07/19/20 History Tab] Isosorbide Mononitrate [Imdur 30mg 30 mg PO DAILY 07/19/20 07/19/20 History ER tablet] Metformin HCl [Glucophage] 500 mg PO BID 07/19/20 07/19/20 History Metoprolol Succinate [Metoprolol 50 mg PO DAILY 07/19/20 07/19/20 History Succinate 50mg Tablet*] Pantoprazole Sodium 40 mg PO DAILY 07/19/20 07/19/20 History lisinopriL [Prinivil 10mg Tablet] 10 mg PO SUBHASH
--- NOTE | 2020-07-19 08:44 | PC.NURSE ---
vascular here for echo
[2020-07-19 10:24] LABS: Troponin I < 0.01 ng/ml (0.00-0.034)
== END 2020-07-19 10:33 | disposition home or self-care (01) ==
PROVIDERS: Emergency Provider Emergency Medicine; PCP Family Medicine
DX: I20.0 Unstable angina (principal); I25.10 Atherosclerotic heart disease of native coronary artery without angina pectoris; I10 Essential (primary) hypertension; K21.9 Gastro-esophageal reflux disease without esophagitis; E78.5 Hyperlipidemia, unspecified; E66.9 Obesity, unspecified; Z68.34 Body mass index [BMI] 34.0-34.9, adult; F17.210 Nicotine dependence, cigarettes, uncomplicated
CPT/HCPCS: 71046; 80048; 80076; 83880; 84484; 85025; 87581; 87633; 87798; 93005; 93306; 99283

== ENCOUNTER → 2020-07-27 11:56 | Outpatient (CLI) | payer BC, SELFPAY ==
[2020-07-27 14:22] LABS: NT Pro Brain Natriuretic Pep. 47.7 pg/mL (0-125)
== END ==
PROVIDERS: Visit Provider Internal Medicine Cardiovascular Disease
DX: R42 Dizziness and giddiness (principal); R55 Syncope and collapse; I25.118 Atherosclerotic heart disease of native coronary artery with other forms of angina pectoris; I10 Essential (primary) hypertension; E78.2 Mixed hyperlipidemia; F17.209 Nicotine dependence, unspecified, with unspecified nicotine-induced disorders; G47.33 Obstructive sleep apnea (adult) (pediatric)
CPT/HCPCS: 36415; 83880

== ENCOUNTER → 2020-07-27 12:10 | Outpatient (CLI) | payer BC, SELFPAY | PROVIDERS: PCP Family Medicine; Visit Provider Internal Medicine Cardiovascular Disease | DX: R55 Syncope and collapse (principal) | CPT/HCPCS: 93225 ==

== ENCOUNTER → 2020-07-31 14:03 | Outpatient (CLI) | payer BC, SELFPAY ==
[2020-07-31 14:11] LABS: Basophils # 0.1 K/mm3 (0-0.2); Basophils % 0.4 % (0.1-2.0); Eosinophils # 0.3 K/mm3 (0.0-0.4); Eosinophils % 2.3 % (0.1-12.0); Hemoglobin 16.7 g/dL (14.1-18.0); Lymphocytes # 3.7 K/mm3 (0.7-4.5); Lymphocytes % 34.5 % (10-50); Mean Corpuscular HGB Conc 33.4 g/dL (31.8-35.4); Mean Corpuscular Hemoglobin 30.3 pg (27.0-31.2); Mean Corpuscular Volume 90.9 fl (80-94); Mean Platelet Volume 9.2 fl (7.4-10.4); Monocytes # 0.6 K/mm3 (0.1-1.0); Monocytes % 5.7 % (1.7-9.3); Neutrophils # 6.1 K/mm3 (1.8-7.8); Neutrophils % 57.1 % (37.0-80.0); Platelet Count 246 K/mm3 (142-424); Red Cell Distribution Width 13.9 % (11.5-17.5); White Blood Count 10.7 K/mm3 (4.8-10.8)
[2020-07-31 14:51] LABS: Alanine Aminotransferase 35 U/L (12-78); Albumin Level 4.7 g/dl (3.5-5.0); Albumin/Globulin Ratio 1.7 (1.1-1.8); Alkaline Phosphatase 74 U/L (38-126); Anion Gap 13.8 mEq/L (5-15); Aspartate Amino Transferase 25 U/L (17-59); Bilirubin,Total 0.6 mg/dl (0.2-1.3); Blood Urea Nitrogen 21 mg/dl (9-20); Calcium 9.3 mg/dl (8.4-10.2); Carbon Dioxide 21 mmol/L (22.0-30.0); Chloride 109 mmol/L (98-107); Chol/HDL Ratio 4.1 (1-3.5); Cholesterol 130 mg/dl (140-200); Estimated Glomerular Filt Rate 86 ml/min (>60); GFR (African American) 104 ML/MIN (>60); Globulin 2.7 g/dL (1.3-3.2); Glucose 139 mg/dl (74-100); HDL Cholesterol 32 mg/dl (40-60); Potassium 4.8 mmoL/L (3.5-5.1); Sodium 139 mmol/L (136-145); Total Protein,Serum 7.4 g/dl (6.3-8.2); Triglycerides 123 mg/dl (30-150); VLDL Cholesterol 25 mg/dL (0-40)
[2020-07-31 15:03] LABS: Direct LDL Cholesterol 74.07 mg/dL (100-129)
[2020-07-31 15:13] LABS: T4 (Thyroxine) 8.2 ug/dl (5.53-11.0)
[2020-07-31 15:27] LABS: Prostate Specific Ag Screen 0.5 ng/ml (0.0-4.0); Thyroid Stimulating Hormone 1.57 uIU/mL (0.465-4.68)
== END ==
PROVIDERS: Visit Provider Family Medicine
DX: I20.0 Unstable angina (principal); R42 Dizziness and giddiness; Z12.5 Encounter for screening for malignant neoplasm of prostate; Z79.899 Other long term (current) drug therapy
CPT/HCPCS: 80053; 80061; 84436; 84443; 85025; G0103

== ENCOUNTER → 2020-08-02 06:57 | Outpatient (CLI) | payer BC, SELFPAY ==
--- NOTE | 2020-08-02 06:58 | US_ITS ---
PROCEDURE: US ABD. AORTA SCREENING CLINICAL INDICATION: screening COMPARISON: US US ABDOMEN COMPLETE from 01/31/2020 FINDINGS: The upper abdominal aorta has an unremarkable appearance. However beginning at the region 4 cm above the level of the umbilicus, the abdominal aorta is poorly identified due to overlying bowel gas. There is questionable dilatation of the lower abdominal aorta but not adequately visualized. CT of the aorta may provide further evaluation if clinically desired. Common iliacs have an unremarkable appearance. IMPRESSION: Limited study due to overlying bowel gas. Consider CT for more thorough evaluation. There is questionable dilatation of the lower abdominal aorta at approximately 3.5 cm. This however is not conclusive. Dictated by: Francisco J Linton MD 08/02/2020 11:55 Francisco J Linton MD in [place] 08/02/2020 11:55
--- NOTE | 2020-08-02 06:58 | CA_ITS ---
APPROVED REPORT Exam: Pharmacologic Technologist: Hillary Ibarra, Ht: 6 ft 1 in Wt: 269 lbs BSA: 2.44 m2 HR: 61 bpm BP: 114/69 mmHg Medical History Medications: Aspirin,,,,, Metoprolol,,,,, Metformin,,,,, Pantoprazole,,,,, Atorvastatin,,,,, Nitroglycerin,,,,, Imdur,,,,, Ranolazine,,,,, Stress Test Details Test: LEXISCAN HR Resting HR: 62 bpm Max Heart Rate (APMHR): 160.009677 bpm Max HR Achieved: 82 bpm Target HR (85% APMHR): 136.854685 bpm % of APMHR: 51.25 Recovery HR: 72 bpm BP Resting BP: 114/69 mmHg Max BP: 114/69 mmHg Recovery BP: 107.0/69.0 mmHg ECG Resting ECG: NSR, RBBB Clinical Exercise duration: 04:00 min Highest Stage Achieved: Stress ECG Conclusion Symptoms: SOA, malaise, lightheaded, No change in pretest CP. Arrhythmias/Ectopy: None. ST-T Changes: No significant changes. Conclusion: Unremarkable Lexiscan stress. Myoview images reported separately. Electronically signed by : Ru Tenorio, 08/02/2020 10:40:17
--- NOTE | 2020-08-02 06:58 | NM_ITS ---
APPROVED REPORT Exam: Nuclear Stress Test Indication: chest pain Patient Location: Outpatient Stress Tech: Hillary Ibarra [place] Tech:Adenike Mcginnis ROVERTO RT(R)(N) Ht: 6 ft 1 in Wt: 265 lbs HR: 61 bpm BP: 114/69 mmHg BSA: 2.42 m2 BMI: 34.9 History: chest pain Procedure: Patient received a 0.4 mg of intravenous Lexiscan, resting heart rate 61 bpm, resting blood pressure 114/69 mmHg, with Lexiscan maximum heart rate achived was 78 bpm which is Less than 85 % of the maximum predicted heart rate and blood pressure was 113/62 mmHg. With Lexiscan, patient denied any complaint of chest pain. Electrocardiogram Resting electrocardiogram shows sinus rhythm, with Lexiscan there is less than 1.[address] segment depression noted from the baseline EKG. The EKG portion of the Lexiscan is nondiagnostic. Cardiac Stress and Resting SPECT Images: Cardiac Stress and Resting SPECT images were obtained using technetium 99m Myoview 30.2 mCi stress and 10.62 mCi at rest. Gated SPECT for analysis of segmental wall motion and calculation of the ejection fraction also done. Cardiac stress and resting SPECT images show a moderate sized area of reversible ischemia involving the inferior wall, computer derived ejection fraction is 55% with no regional wall motion abnormality, right ventricle is normal size and contractility. Conclusion: 1. The EKG portion of the Lexiscan is nondiagnostic. 2. Scintigraphic evidence of mild reversible ischemia involving the inferior wall, computer derived ejection fraction is 55% with no regional wall motion abnormality, right ventricle is normal size and contractility. 3. Abnormal Lexiscan Myoview study. Electronically signed by : Ru Tenorio, 08/02/2020 12:58:22
--- NOTE | 2020-08-02 06:58 | CA_ITS ---
APPROVED REPORT Laboratory Equipment Installer: Florence Black RVT Laterality: Bilateral Study Quality: Good Indications: carotid bruit,DIZZINESS Risk Factors Hypertension: Smoking Doppler Spectral Velocity Analysis ECA (R) 146.00/22.00 cm/s ECA (L) 150.00/19.60 cm/s dICA (R) 68.40/24.40 cm/s dICA (L) 81.70/37.70 cm/s Hannah (R) 67.60/31.40 cm/s Hannah (L) 91.90/30.60 cm/s pICA (R) 73.90/28.30 cm/s pICA (L) 125.00/28.30 cm/s dCCA (R) 112.00/23.60 cm/s dCCA (L) 108.00/26.70 cm/s pCCA (R) 98.20/18.90 cm/s pCCA (L) 107.00/24.40 cm/s Vert (R) 46.40/16.50 cm/s Vert (L) 40.10/13.40 cm/s ICA/CCA 0.70 ICA/CCA 1.16 Findings Study suggests less than 20% stenosis of the bilateral internal cartoid arteries. Antegrade flow seen bilateral vertebral arteries. Conclusion Study suggests less than 20% stenosis of the bilateral internal cartoid arteries. Antegrade flow seen bilateral vertebral arteries. Electronically signed by : Francisco J Linton MD 08/02/2020 15:14:50
== END ==
PROVIDERS: PCP Family Medicine; Visit Provider Internal Medicine Cardiovascular Disease
DX: R42 Dizziness and giddiness (principal); R55 Syncope and collapse; I20.9 Angina pectoris, unspecified; I25.118 Atherosclerotic heart disease of native coronary artery with other forms of angina pectoris; I10 Essential (primary) hypertension; E78.2 Mixed hyperlipidemia; F17.209 Nicotine dependence, unspecified, with unspecified nicotine-induced disorders; G47.33 Obstructive sleep apnea (adult) (pediatric)
CPT/HCPCS: 76705; 78452; 93017; 93880; A9502; J2785

== ENCOUNTER → 2020-08-07 18:10 | Outpatient (CLI) | payer BC, SELFPAY | PROVIDERS: PCP Family Medicine; Visit Provider Internal Medicine Cardiovascular Disease | DX: G47.30 Sleep apnea, unspecified (principal) | CPT/HCPCS: G0399 ==

== ENCOUNTER → 2020-08-13 15:01 | Outpatient (CLI) | payer BC, SELFPAY ==
[2020-08-13 15:23] LABS: Basophils # 0.1 K/mm3 (0-0.2); Basophils % 0.7 % (0.1-2.0); Eosinophils # 0.3 K/mm3 (0.0-0.4); Eosinophils % 2.9 % (0.1-12.0); Hematocrit 46.5 % (42.0-52.0); Hemoglobin 15.7 g/dL (14.1-18.0); Lymphocytes # 4.2 K/mm3 (0.7-4.5); Lymphocytes % 37.5 % (10-50); Mean Corpuscular HGB Conc 33.7 g/dL (31.8-35.4); Mean Corpuscular Hemoglobin 29.5 pg (27.0-31.2); Mean Corpuscular Volume 87.4 fl (80-94); Mean Platelet Volume 7.3 fl (7.4-10.4); Monocytes # 0.9 K/mm3 (0.1-1.0); Monocytes % 7.7 % (1.7-9.3); Neutrophils # 5.7 K/mm3 (1.8-7.8); Neutrophils % 51.3 % (37.0-80.0); Platelet Count 227 K/mm3 (142-424); Red Blood Count 5.32 M/mm3 (4.60-6.20); Red Cell Distribution Width 13.9 % (11.5-17.5); White Blood Count 11.2 K/mm3 (4.8-10.8)
[2020-08-13 16:03] LABS: Chloride 107 mmol/L (98-107); Potassium 4.2 mmoL/L (3.5-5.1); Sodium 139 mmol/L (136-145)
[2020-08-13 16:06] LABS: Anion Gap 13.2 mEq/L (5-15); Blood Urea Nitrogen 17 mg/dl (9-20); Calcium 9.2 mg/dl (8.4-10.2); Carbon Dioxide 23 mmol/L (22.0-30.0); Estimated Glomerular Filt Rate 99 ml/min (>60); GFR (African American) 119 ML/MIN (>60); Glucose 88 mg/dl (74-100)
== END ==
PROVIDERS: Visit Provider Urology
DX: Z01.812 Encounter for preprocedural laboratory examination (principal); Z20.822 Contact with and (suspected) exposure to COVID-19; R07.9 Chest pain, unspecified; R42 Dizziness and giddiness; I20.8 Other forms of angina pectoris; E78.5 Hyperlipidemia, unspecified; R94.30 Abnormal result of cardiovascular function study, unspecified; I10 Essential (primary) hypertension; R23.1 Pallor; Z72.0 Tobacco use
CPT/HCPCS: 36415; 80048; 85025; U0003

== ENCOUNTER 2020-08-14 08:12 | Day surgery (SDC) | payer BC, SELFPAY ==
[2020-08-14] VITALS (11 sets, daily range): BP systolic 97–157; BP diastolic 57–94; PULSE 62–74; RESP 14–18; TEMP 36.8; O2SAT 94–100; BMI 34.9
--- NOTE | 2020-08-14 | IR_ITS ---
APPROVED REPORT Patient Location: Outpatient [facility] Supervisor: ROVERTO Fraser RT (R) PROCEDURES Left heart catheterization Left ventriculogram Selective coronary angiogram Drug-eluting stent deployment to the proximal ID Drug-eluting stent deployment to the proximal dominant right coronary INDICATION Coronary disease, Angina pectoris, Abnormal Myoview, Informed consent was obtained prior to the procedure. COMPLICATIONS None Estimated Blood Loss: less than 10ml TECHNIQUE One percent lidocaine used to anesthetize the right anterior aspect of the wrist. The right radial artery was accessed via the Seldinger technique. A 6 Czech sheath was placed in the right radial artery. 2.5 mg of verapamil, 800 mcg of nitroglycerin, 1mg Lidocaine and 5000 U Heparin were given through the arterial sheath. The trap catheter was also used to perform left heart catheterization, left ventriculogram and selective coronary angiogram. At the end the diagnostic angiogram therapeutic heparin was administered giving a therapeutic ACT and a Poppa catheter was used to intubate the left main artery. A Choice PT wire was placed in the LAD and a 4 mm x 8 mm resolute Becket stent was deployed at 16 bill in the proximal LAD reducing the eccentric hazy calcified stenosis to 0%. BETTY-3 flow was present before and after the procedure. After achieving excellent angiographic results the apparatus was removed from the left main artery and placed into the right coronary artery where the same wire was used to advance the beyond the proximal stenosis. A 4 mm x 22 mm resolute Becket stent was then deployed at 20 bill reducing the severe stenosis to 0%. BETTY-3 flow was present before and after the procedure. At the end the procedure the apparatus was removed the sheath was removed and hemostasis was achieved using TR banding patient was transferred to the postop putting her stable addition ANGIOGRAPHIC RESULTS The left main artery Normal The left anterior descending artery Has a proximal severe highly eccentric calcified cleft which traverses at least 70% of the vessel. There are additional 10% stenoses with mid vessel 30% stenoses. The circumflex artery Nondominant normal The right coronary artery Is a large dominant vessel and has a proximal eccentric 70 to 80% stenosis followed by an additional mid vessel long 30 to 40% stenosis The GARCIA ventriculogram reveals Normal 65% The left ventricular end-diastolic pressure 10 to 15 mmHg IMPRESSION Severe two-vessel coronary disease as described above Successful stenting of the proximal LAD severe eccentric calcified stenosis reduced to 0% with 1 drug-eluting stent Successful stenting of the proximal dominant right coronary severe disease reduced to 0% with 1 drug-eluting stent Normal ejection fraction Mildly elevated LVEDP PLAN 1. Brilinta 90 twice daily plus aspirin 81 mg daily 2. High intensity statin to achieve goal LDL of 55 3. Cardiac rehabilitation 4. Avoidance of tobacco products 5. Risk factor modification Electronically signed by : Mikey Stephen, 08/14/2020 13:12:32
[2020-08-14 14:20] LABS: CATHL Activated Clotting Time 375 SEC (74-125)
== END 2020-08-14 16:27 | disposition home or self-care (01) ==
PROVIDERS: PCP Family Medicine; Visit Provider Internal Medicine
DX: I25.118 Atherosclerotic heart disease of native coronary artery with other forms of angina pectoris (principal); E11.9 Type 2 diabetes mellitus without complications; F17.210 Nicotine dependence, cigarettes, uncomplicated; I10 Essential (primary) hypertension; G43.909 Migraine, unspecified, not intractable, without status migrainosus; E78.5 Hyperlipidemia, unspecified; Z79.4 Long term (current) use of insulin; Z79.899 Other long term (current) drug therapy
CPT/HCPCS: 85347; 92928; 93458; 99152; C1725; C1769; C1876; C9600; J1644; Q9967

== ENCOUNTER → 2020-09-05 10:50 | Outpatient (CLI) | payer BC, SELFPAY ==
[2020-09-05 12:27] LABS: Hemoglobin A1C 6.7 % (4.0-6.0)
[2020-09-05 12:35] LABS: Chloride 106 mmol/L (98-107); Potassium 4.6 mmoL/L (3.5-5.1); Sodium 141 mmol/L (136-145)
[2020-09-05 12:38] LABS: Anion Gap 14.6 mEq/L (5-15); Blood Urea Nitrogen 19 mg/dl (9-20); Carbon Dioxide 25 mmol/L (22.0-30.0); Estimated Glomerular Filt Rate 86 ml/min (>60); GFR (African American) 104 ML/MIN (>60); Glucose 127 mg/dl (74-100)
== END ==
PROVIDERS: Visit Provider Nurse Practitioner Family
DX: I25.118 Atherosclerotic heart disease of native coronary artery with other forms of angina pectoris (principal); E78.2 Mixed hyperlipidemia; F17.210 Nicotine dependence, cigarettes, uncomplicated; I10 Essential (primary) hypertension; R09.89 Other specified symptoms and signs involving the circulatory and respiratory systems
CPT/HCPCS: 36415; 80048; 83036

== ENCOUNTER 2020-09-05 14:26 | Outpatient (RCR) | payer BC, SELFPAY | END 2021-01-09 10:36 | disposition home or self-care (01) | LOC: PT 14:26 | PROVIDERS: Visit Provider Internal Medicine | DX: Z95.5 Presence of coronary angioplasty implant and graft (principal); I25.10 Atherosclerotic heart disease of native coronary artery without angina pectoris | CPT/HCPCS: 93798 ==

== ENCOUNTER → 2020-09-20 13:50 | Outpatient (CLI) | payer BC, SELFPAY ==
[2020-09-20 14:55] LABS: Chloride 105 mmol/L (98-107); Sodium 147 mmol/L (136-145)
[2020-09-20 14:58] LABS: Blood Urea Nitrogen 26 mg/dl (9-20); Estimated Glomerular Filt Rate 76 ml/min (>60); GFR (African American) 92 ML/MIN (>60)
[2020-09-20 14:59] LABS: Calcium 9.5 mg/dl (8.4-10.2); Carbon Dioxide 30 mmol/L (22.0-30.0); Glucose 115 mg/dl (74-100)
== END ==
PROVIDERS: Visit Provider Internal Medicine Cardiovascular Disease
DX: I25.118 Atherosclerotic heart disease of native coronary artery with other forms of angina pectoris (principal); R06.02 Shortness of breath; I10 Essential (primary) hypertension; E78.2 Mixed hyperlipidemia; E66.9 Obesity, unspecified; Z72.0 Tobacco use
CPT/HCPCS: 36415; 80048

== ENCOUNTER → 2020-11-06 14:23 | Outpatient (CLI) | payer BC, SELFPAY ==
[2020-11-06 17:48] LABS: Anion Gap 17.8 mEq/L (5-15); Blood Urea Nitrogen 18 mg/dl (9-20); Calcium 9.7 mg/dl (8.4-10.2); Carbon Dioxide 25 mmol/L (22.0-30.0); Chloride 104 mmol/L (98-107); Estimated Glomerular Filt Rate 68 ml/min (>60); GFR (African American) 83 ML/MIN (>60); Glucose 100 mg/dl (74-100); Potassium 3.8 mmoL/L (3.5-5.1); Sodium 143 mmol/L (136-145)
== END ==
PROVIDERS: Visit Provider Internal Medicine Cardiovascular Disease
DX: I25.118 Atherosclerotic heart disease of native coronary artery with other forms of angina pectoris (principal); I20.9 Angina pectoris, unspecified; I10 Essential (primary) hypertension; E78.2 Mixed hyperlipidemia; R09.89 Other specified symptoms and signs involving the circulatory and respiratory systems; F17.209 Nicotine dependence, unspecified, with unspecified nicotine-induced disorders
CPT/HCPCS: 36415; 80048

== ENCOUNTER → 2020-11-27 14:56 | Outpatient (CLI) | payer BC, SELFPAY ==
--- NOTE | 2020-11-27 14:56 | CA_ITS ---
APPROVED REPORT Exam: Exercise Treadmill Technologist: Hillary Ibarra, Ht: 6 ft 1 in Wt: 267 lbs BSA: 2.43 m2 HR: 83 bpm BP: 143/87 mmHg Indications: Exercise capacity, BP response Medical History Medications: Asa,,,,, Metformin,,,,, Losartan,,,,, Pantoprazole,,,,, Nicotine,,,,, CloPIdogrel,,,,, Famotidine,,,,, BuPROPION,,,,, Nitroglycerin,,,,, Ranexa,,,,, Furosemide,,,,, Atorvasatin,,,,, Stress Test Details Test: Sabas HR Resting HR: 88 bpm Max Heart Rate (APMHR): 159.238192 bpm Max HR Achieved: 149 bpm Target HR (85% APMHR): 135.477996 bpm % of APMHR: 93.71 Recovery HR: 94 bpm BP Resting BP: 151/91 mmHg Max BP: 175/78 mmHg Recovery BP: 132.0/78.0 mmHg ECG Resting ECG: NSR, RBBB, ST abns in leads V4-V6 Clinical Exercise duration: 07:06 min Highest Stage Achieved: Exercise capacity: 10.1 METs Stress ECG Conclusion Exercised 7:06 on Sabas Protocol Max HR: 142 % of PM: 89% Max BP: 175/78 METs: 10.1 Test Stopped due to: SOA, Fatigue Symptoms: No CP. Arrhythmias/Ectopy: None. ST-T Changes: No significant changes compared to baseline. Conclusion: Normal GXT with decreased sensitivity due to baseline EKG abns. GXT only (no imaging). Test Summary REST . . . . . . . Standing REST 03:33 0.0 0.0 88 . 151/ 91 . . Stage 1 01:00 10.0 1.7 99 . . . . Stage 1 02:00 10.0 1.7 109 . . . . Stage 1 03:00 10.0 1.7 115 . 156/ 80 . . Stage 2 01:00 12.0 2.5 123 . . . . Stage 2 02:00 12.0 2.5 129 . . . . Stage 2 03:00 12.0 2.5 133 . 175/ 78 . . Stage 3 01:00 14.0 3.4 140 . . . . Stage 3 01:06 14.0 3.4 140 . . . Stop exercise at 07:06 RECOVERY 01:00 0.0 0.0 130 . . . . RECOVERY 02:00 0.0 0.0 109 . 159/ 90 . . RECOVERY 03:00 0.0 0.0 99 . 159/ 90 . . RECOVERY 04:00 0.0 0.0 96 . 153/ 79 . . RECOVERY 05:00 0.0 0.0 99 . 153/ 79 . . RECOVERY 05:56 0.0 0.0 94 . 132/ 78 . . Electronically signed by : Ru Tenorio MD 11/27/2020 18:00:54
== END ==
PROVIDERS: PCP Family Medicine; Visit Provider Internal Medicine Cardiovascular Disease
DX: I25.118 Atherosclerotic heart disease of native coronary artery with other forms of angina pectoris (principal); R09.89 Other specified symptoms and signs involving the circulatory and respiratory systems
CPT/HCPCS: 93017

== ENCOUNTER → 2020-12-13 14:45 | Outpatient (CLI) | payer BC, SELFPAY | PROVIDERS: PCP Family Medicine; Visit Provider Internal Medicine Cardiovascular Disease | DX: R42 Dizziness and giddiness (principal); R55 Syncope and collapse; I20.9 Angina pectoris, unspecified | CPT/HCPCS: 93225; 93226 ==

== ENCOUNTER 2020-12-18 12:12 | Emergency (ER) | payer BC, SELFPAY ==
[2020-12-18] VITALS (7 sets, daily range): BP systolic 110–139; BP diastolic 77–94; PULSE 59–74; RESP 16; TEMP 36.8; O2SAT 96–99; BMI 34.8
--- NOTE | 2020-12-18 12:08 | ECG_ITS ---
APPROVED REPORT Exam: Resting ECG HR:69 bpm ECG Measurements Heart Rate 69 AXES VA 182 P 51 QRSd 140 QRS 58 QT 452 T 11 QTc 484 Conclusion Normal sinus rhythm Right bundle branch block Abnormal ECG Electronically signed by : Chance Wren MD 12/19/2020 17:28:55
--- NOTE | 2020-12-18 12:18 | XR_ITS ---
PROCEDURE: XR CHEST 2V CLINICAL HISTORY: chest pain COMPARISON: CR XR CHEST PORTABLE from 01/12/2020 CR XR CHEST 2V from 07/19/2020 FINDINGS: The cardiomediastinal silhouette and pulmonary vascularity are within normal limits. There is a small nodular opacity in the left perihilar region measuring approximately 14 mm. This could be a summation artifact from overlying vessels and ribs. Appearance is somewhat similar compared to the previous exam. There is a mild amount of rotation. No lobar consolidation or collapse. Degenerative changes thoracic spine. IMPRESSION: No acute finding. Nodular opacity left perihilar regions possibly due to summation artifact versus pulmonary nodule. Follow-up may confirm stability. Dictated by: Francisco J Linton MD 12/18/2020 12:33 Francisco J Linton MD in [place] 12/18/2020 12:33
--- NOTE | 2020-12-18 12:20 | HMH.EDGENADL ---
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 Off work until . Follow-up with primary care provider, call for appointment. Follow-up with cardiology within 1 to 2 weeks. Call for appointment. Additional instructions for BACK PAIN: See your physician as soon as possible for further evaluation. Return immediately if back pain becomes intolerable, or if fever, numbness or weakness of your legs, loss of control of your bowels or bladder. Additional instructions for CHEST PAIN: See your physician as soon as possible for further evaluation. Return immediately if worsening chest pain, vomiting, shortness of breath, fever, coughing of blood. Prescriptions: Hydrocod/Acet 5/325 mg [[place] 5/325mg tablet] 1 tab PO Q6HP PRN #10 tab PRN Reason: Pain Transmission Status: Received by [id number] Ibuprofen [Ibuprofen 800mg Tablet] 800 mg PO Q8HP PRN #15 tab PRN Reason: Moderate Pain Transmission Status: Pending to [id number] Referrals: Provider,Referral, [Primary Care Provider] - - Critical Care Critical Care Time: No Attestation: On , the high probability of a clinically significant, sudden or life threatening deterioration of the following system(s) required my full and direct attention, intervention and personal management. The time I documented below is in addition to time spent performing reported procedures but includes the following listed in this critical care notation. Medical Decision Making - Medical Records Medical records reviewed: Yes: I reviewed the patient's medical records. MR Comment: Reviewed previous heart cath result and stress test result, see below. - Jorge Inquiry Pt receiving controlled substance: No Vital Signs: 12/18/20 12:12 12/18/20 12:39 12/18/20 13:30 Temperature 98.3 F Temperature Source Oral Pulse Rate 74 64 Pulse Rate [Right] 72 Respiratory Rate 16 16 16 Blood Pressure 130/85 122/80 Blood Pressure [Right Arm] 139/94 H Blood Pressure Mean [Right Arm] 109 Blood Pressure Source Automatic Cuff Blood Pressure Source [Right Arm] Automatic Cuff Blood Pressure Position Sitting Blood Pressure Position [Right Arm] Sitting 02 Sat by Pulse Oximetry 99 98 98 Oxygen Delivery Method Room Air Room Air Room Air 12/18/20 14:30 12/18/20 15:34 12/18/20 16:06 Temperature Temperature Source Pulse Rate 65 69 59 L Pulse Rate [Right] Respiratory Rate 16 16 16 Blood Pressure 110/81 119/79 114/77 Blood Pressure [Right Arm] Blood Pressure Mean [Right Arm] Blood Pressure Source Automatic Cuff Automatic Cuff Blood Pressure Source [Right Arm] Blood Pressure Position Sitting Sitting Blood Pressure Position [Right Arm] 02 Sat by Pulse Oximetry 96 96 96 Oxygen Delivery Method Room Air Room Air Room Air - Lab Data Lab Results 12/18/20 12:13: WBC 11.1 H, RBC 5.64, Hgb 17.8, Hct 54.4 H, MCV 96.5 H, MCH 31.6 H, MCHC 32.7, RDW 13.3, Plt Count 282, MPV 7.6, Neut % (Auto) 55.1, Lymph % (Auto) 35.5, [place] % (Auto) 7.3, Eos % (Auto) 1.6, Baso % (Auto) 0.5, Neut # (Auto) 6.1, Lymph # (Auto) 3.9, [place] # (Auto) 0.8, Eos # (Auto) 0.2, Baso # (Auto) 0.1 12/18/20 12:13: Sodium 141, Potassium 4.2, Chloride 104, Carbon Dioxide 25, Anion Gap 16.2 H, BUN 19, Creatinine 1.00, Estimated Creat Clear 3, Estimated GFR 76, Est GFR ( Amer) 92, Glucose 137 H, Calcium 9.3, Troponin I < 0.01 11/30
[2020-12-18 12:29] LABS: Basophils # 0.1 K/mm3 (0-0.2); Basophils % 0.5 % (0.1-2.0); Eosinophils # 0.2 K/mm3 (0.0-0.4); Eosinophils % 1.6 % (0.1-12.0); Hematocrit 54.4 % (42.0-52.0); Hemoglobin 17.8 g/dL (14.1-18.0); Lymphocytes # 3.9 K/mm3 (0.7-4.5); Lymphocytes % 35.5 % (10-50); Mean Corpuscular HGB Conc 32.7 g/dL (31.8-35.4); Mean Corpuscular Hemoglobin 31.6 pg (27.0-31.2); Mean Corpuscular Volume 96.5 fl (80-94); Mean Platelet Volume 7.6 fl (7.4-10.4); Monocytes # 0.8 K/mm3 (0.1-1.0); Monocytes % 7.3 % (1.7-9.3); Neutrophils # 6.1 K/mm3 (1.8-7.8); Neutrophils % 55.1 % (37.0-80.0); Platelet Count 282 K/mm3 (142-424); Red Blood Count 5.64 M/mm3 (4.60-6.20); Red Cell Distribution Width 13.3 % (11.5-17.5); White Blood Count 11.1 K/mm3 (4.8-10.8)
[2020-12-18 12:31] LABS: Chloride 104 mmol/L (98-107); Potassium 4.2 mmoL/L (3.5-5.1); Sodium 141 mmol/L (136-145)
[2020-12-18 12:34] LABS: Anion Gap 16.2 mEq/L (5-15); Blood Urea Nitrogen 19 mg/dl (9-20); Carbon Dioxide 25 mmol/L (22.0-30.0); Creatinine Clearance Estimated 3 mL/min (50-200); Estimated Glomerular Filt Rate 76 ml/min (>60); GFR (African American) 92 ML/MIN (>60)
[2020-12-18 12:35] LABS: Calcium 9.3 mg/dl (8.4-10.2); Glucose 137 mg/dl (74-100)
--- NOTE | 2020-12-18 12:41 | PC.NURSE ---
OLIVIA lott, called to come evaluate patient
[2020-12-18 12:50] LABS: Troponin I < 0.01 ng/ml (0.00-0.034)
--- NOTE | 2020-12-18 12:52 | CT_ITS ---
PROCEDURE INFORMATION: Exam: CT Thoracic Spine Without Contrast Exam date and time: 12/18/2020 12:52 PM Age: 60 years old Clinical indication: Pain in thoracic spine; Additional info: Thoracic back pain TECHNIQUE: Imaging protocol: Computed tomography images of the thoracic spine without contrast. Radiation optimization: All CT scans at this facility use at least one of these dose optimization techniques: automated exposure control; mA and/or kV adjustment per patient size (includes targeted exams where dose is matched to clinical indication); or iterative reconstruction. COMPARISON: CR XR CHEST 2V 12/18/2020 12:17 PM FINDINGS: Vertebrae: See Discs/Spinal canal/Neural foramina finding. Discs/Spinal canal/Neural foramina: There are multilevel degenerative changes that include disc space narrowing and hypertrophic spurring. There are numerous bridging anterior osteophytes. Soft tissues: Unremarkable. IMPRESSION: There are multilevel degenerative changes that include disc space narrowing and hypertrophic spurring. There are numerous bridging anterior osteophytes. Full evaluation of the intervertebral discs and intraspinal contents is limited with CT imaging. Clinical findings will determine the need for further evaluation with MRI imaging.
--- NOTE | 2020-12-18 13:17 | CT_ITS ---
PROCEDURE INFORMATION: Exam: CTA Abdomen and Pelvis With Contrast Exam date and time: 12/18/2020 1:17 PM Age: 60 years old Clinical indication: Other: Thoracic pain; Additional info: R/O aaa TECHNIQUE: Imaging protocol: Computed tomographic angiography of the abdomen and pelvis with contrast material. 3D rendering (Not supervised by radiologist): MIP and/or 3D reconstructed images were created by the technologist. Radiation optimization: All CT scans at this facility use at least one of these dose optimization techniques: automated exposure control; mA and/or kV adjustment per patient size (includes targeted exams where dose is matched to clinical indication); or iterative reconstruction. Contrast material: ISOVUE; Contrast volume: 100 ml; Contrast route: INTRAVENOUS (IV); COMPARISON: US ABDOMEN COMPLETE 01/31/2020 8:05 AM FINDINGS: Aorta: No aortic aneurysm. No aortic dissection. Celiac trunk and mesenteric arteries: No occlusion or significant stenosis. Renal arteries: No occlusion or significant stenosis. Right iliac arteries: No occlusion or significant stenosis. Left iliac arteries: No occlusion or significant stenosis. Liver: No mass. Gallbladder and bile ducts: Unremarkable. No calcified stones. No ductal dilation. Pancreas: Unremarkable. No mass. No ductal dilation. Spleen: Unremarkable. No splenomegaly. Adrenal glands: Unremarkable. No mass. Kidneys and ureters: Unremarkable. No solid mass. No hydronephrosis. Stomach and bowel: Unremarkable. No obstruction. No mucosal thickening. Appendix: No evidence of appendicitis. Intraperitoneal space: Unremarkable. No free air. No significant fluid collection. Lymph nodes: Unremarkable. No enlarged lymph nodes. Urinary bladder: Unremarkable. No mass. Reproductive: Unremarkable as visualized. Bones/joints: No acute fracture. No dislocation. Soft tissues: Unremarkable. IMPRESSION: Unremarkable abdomen and pelvis. Normal abdominal and pelvic vasculature.
--- NOTE | 2020-12-18 13:17 | CT_ITS ---
PROCEDURE INFORMATION: Exam: CTA Chest With Contrast Exam date and time: 12/18/2020 1:17 PM Age: 60 years old Clinical indication: Chest wall pain; Additional info: R/O aaa, thoracic pain TECHNIQUE: Imaging protocol: Computed tomographic angiography of the chest with contrast. 3D rendering (Not supervised by radiologist): MIP and/or 3D reconstructed images were created by the technologist. Radiation optimization: All CT scans at this facility use at least one of these dose optimization techniques: automated exposure control; mA and/or kV adjustment per patient size (includes targeted exams where dose is matched to clinical indication); or iterative reconstruction. Contrast material: ISOVUE; Contrast volume: 100 ml; Contrast route: INTRAVENOUS (IV); COMPARISON: CR XR CHEST 2V 12/18/2020 12:17 PM FINDINGS: Pulmonary arteries: Normal. No pulmonary emboli. Aorta: Unremarkable. No aortic aneurysm. No aortic dissection. Lungs: Unremarkable. No consolidation. No masses. Pleural spaces: Unremarkable. No pneumothorax. No pleural effusion. Heart: Unremarkable. No cardiomegaly. No pericardial effusion. Lymph nodes: Unremarkable. No enlarged lymph nodes. Bones/joints: Unremarkable. No acute fracture. Soft tissues: Unremarkable. IMPRESSION: Unremarkable CT angiogram chest.
--- NOTE | 2020-12-18 14:10 | HMH.CNCARD ---
History of Present Illness Consult date: 12/18/20 Requesting physician: Walt Quach Consult reason: chest pain Chief complaint: Chest pain and back pain History of present illness: 60-year-old male presented to the ED with tenderness in his chest. Patient states for the past 1 to 2 months he has been having complaints of external band feeling around his chest which then radiates between his shoulder blades. Patient was seen on 12/13/[address] Tenorio at the cardiology office for same complaint. Patient did undergo GXT which revealed no significant ST changes. Last heart catheterization was in July 2020 in which patient required stenting to the LAD and RCA. Patient is currently on Plavix and aspirin daily for ischemic coronary artery disease. Echocardiogram was performed in June 2020 which revealed EF 55% with mild MR and TR noted. Patient states this external band feeling tightness has been consistent for the past 1 month. Patient states when pain does become intense he becomes short of breath. Patient states once the pain has eased, then the shortness of breath will improve. Patient is on currently on standard heart disease medications. Patient denies swelling of the lower extremity. Patient states he will have episodes of spasms in his back. Patient states at times the spasms will cause him difficulty in walking. EKG revealed normal sinus rhythm with right bundle branch block with a heart rate of 69 bpm. Blood pressure is stable. Patient does have history of hypertension. Pt is a smoker of 1 pack/day of cigarettes. Patient states he is currently trying to quit smoking. Pt does have history of Diabetes. Controlled and managed by PCP. Ultrasound of the abdomen was performed which revealed study was difficult due to overlying gas. There is questionable dilatation of the lower abdominal aorta at approximately 3.5 cm. This however is not conclusive. ED physician has ordered CTA of the abdomen and additional x-rays. Serial troponins have been drawn to rule out any ischemic event. Troponin x1 is negative. CXR:Nodular opacity left perihilar regions possibly due to summation artifact versus pulmonary nodule. Follow-up may confirm stability. Discussed plan of care with Dr. Rogel. Orders and recommendations were received from Dr. Rogel. Description of patient's pain seems to be more skeletal than cardiac at this time. If second troponin is negative, patient may be discharged home and follow-up with cardiology in 3 to 4 days or sooner if signs and symptoms persist. Recommend patient to follow-up with PCP regarding shoulder and back pain. Thank you for allowing cardiology to participate in the care of this patient. [facility] History I have reviewed the patient's past medical history: Yes Medical History: Reports:: Coronary Artery Disease, Diabetes Mellitus Type 2, Gastroesophageal Reflux Disease(GERD), Hyperlipidemia, Hypertension, Migraine Denies:: Cancer, Diabetes Mellitus Type 1, Internal Pacemaker, MRSA *Have you ever received a pneumonia vaccine?: Yes *Have you received a flu vaccine this season?: Yes Other Surgeries: Yes: Cardiac Catheterization, Coronary Stent. No: Pacemaker Amputation: No Fractures: Yes (lt arm) - *Social History Smoking Status: Light tobacco smoker Tobacco Type: cigarettes # Packs/Day (cigarettes): 1 Alcohol Intake: never Substance Use Type: denies use *Occupational Status:: employed Housing: house Household Members: significant other, children *Travel in the last 8 weeks: Inside the [facility] Family Hx:: Coronary Artery Disease, Heart Attack, Cancer Meds Home Medications Medication Instructions Recorded Confirmed Type Aspirin [Aspirin 81mg chewable 81 mg PO DAILY 07/19/20 12/13/20 History tab] Atorvastatin Calcium [Lipitor 40mg 40 mg PO HS 07/19/20 12/13/20 History Tab] Metformin HCl [Glucophage] 500 mg PO BID 07/19/20 12/13/20 History Pantoprazole Sodium 40 mg P
--- NOTE | 2020-12-18 15:27 | PC.NURSE ---
BLOOD SENT TO LAB FOR REPEAT TROP
[2020-12-18 15:58] LABS: Troponin I < 0.01 ng/ml (0.00-0.034)
== END 2020-12-18 16:38 | disposition home or self-care (01) ==
PROVIDERS: Emergency Provider Emergency Medicine
DX: R07.89 Other chest pain (principal); M54.6 Pain in thoracic spine; M47.814 Spondylosis without myelopathy or radiculopathy, thoracic region; I25.10 Atherosclerotic heart disease of native coronary artery without angina pectoris; K21.9 Gastro-esophageal reflux disease without esophagitis; I10 Essential (primary) hypertension; E78.5 Hyperlipidemia, unspecified; F17.210 Nicotine dependence, cigarettes, uncomplicated; Z79.899 Other long term (current) drug therapy
CPT/HCPCS: 71046; 71275; 72128; 74174; 80048; 84484; 85025; 93005; 99284; Q9967

== ENCOUNTER 2021-04-04 00:21 | Emergency (ER) | payer BC, SELFPAY ==
--- NOTE | 2021-04-04 00:20 | ECG_ITS ---
APPROVED REPORT Exam: Resting ECG HR:69 bpm ECG Measurements Heart Rate 69 AXES MT 185 P 58 QRSd 154 QRS 61 QT 412 T 59 QTc 432 Conclusion SINUS RHYTHM RIGHT BUNDLE BRANCH BLOCK [120+ ms QRS DURATION, UPRIGHT V1, 40+ ms S IN I/aVL/V4/V5/V6] ABNORMAL ECG UNCONFIRMED REPORT Electronically signed by : Chance Wrne MD 04/04/2021 19:30:03
[2021-04-04 00:21] VITALS: BP 104/67; BP 108/70; BP 98/62; RESP 20; TEMP 37.1; O2SAT 97; BMI 34.2
[2021-04-04 00:30] VITALS: BP 111/71; PULSE 67; RESP 19; O2SAT 96
--- NOTE | 2021-04-04 00:45 | HMH.EDCP ---
ED Disposition Clinical Impression: Chest pain, COVID-19 Disposition: Home, Self-Care Condition on Discharge: Good Instructions: DI for COVID-19 (Suspected or Confirmed ) Additional Instructions: Please follow up with your primary care physician in 2-3 days for further management. Please continue to drink plenty of water and eat 3 balanced meals. Please take tylenol and ibuprofen for fever and pain control. Please return for difficulty breathing, passing out, chest pain, inability to eat and drink or any other concerning symptoms. Referrals: Mohinder Portillo MD [Primary Care Provider] - Time of Disposition: :10 - Critical Care Critical Care Time: No Attestation: On , the high probability of a clinically significant, sudden or life threatening deterioration of the following system(s) required my full and direct attention, intervention and personal management. The time I documented below is in addition to time spent performing reported procedures but includes the following listed in this critical care notation. Medical Decision Making - Medical Records Medical records reviewed: Yes: I reviewed the patient's medical records. - Jorge Inquiry Pt receiving controlled substance: No Vital Signs: 04/04/21 00:21 04/04/21 00:30 04/04/21 01:00 Temperature 98.7 F Temperature Source Oral Pulse Rate 67 66 Respiratory Rate 20 19 23 Blood Pressure 111/71 98/64 L Blood Pressure [Left Radial Artery] 104/67 L Blood Pressure [Right Arm] 108/70 L Blood Pressure [Right Radial Artery] 98/62 L Blood Pressure Mean [Left Radial Artery] 79 Blood Pressure Mean [Right Arm] 82 Blood Pressure Mean [Right Radial Artery] 74 Blood Pressure Source Blood Pressure Source [Left Radial Artery] Automatic Cuff Blood Pressure Source [Right Arm] Automatic Cuff Blood Pressure Source [Right Radial Artery] Automatic Cuff Blood Pressure Position Blood Pressure Position [Left Radial Artery] Standing Blood Pressure Position [Right Arm] Supine Blood Pressure Position [Right Radial Artery] Sitting 02 Sat by Pulse Oximetry 97 96 95 Oxygen Delivery Method Room Air Room Air Room Air 04/04/21 01:30 04/04/21 02:08 Temperature 98.1 F Temperature Source Oral Pulse Rate 65 63 Respiratory Rate 17 19 Blood Pressure 96/59 L 116/68 Blood Pressure [Left Radial Artery] Blood Pressure [Right Arm] Blood Pressure [Right Radial Artery] Blood Pressure Mean [Left Radial Artery] Blood Pressure Mean [Right Arm] Blood Pressure Mean [Right Radial Artery] Blood Pressure Source Automatic Cuff Blood Pressure Source [Left Radial Artery] Blood Pressure Source [Right Arm] Blood Pressure Source [Right Radial Artery] Blood Pressure Position Sitting Blood Pressure Position [Left Radial Artery] Blood Pressure Position [Right Arm] Blood Pressure Position [Right Radial Artery] 02 Sat by Pulse Oximetry 95 Oxygen Delivery Method Room Air Room Air - Lab Data Lab results reviewed: Yes: I reviewed the patient's lab results. Lab Results 04/04/21 00:25: WBC 13.3 H, RBC 5.28, Hgb 16.2, Hct 49.6, MCV 94.1 H, MCH 30.7, MCHC 32.7, RDW 14.4, Plt Count 299, MPV 8.1, Neut % (Auto) 50.9, Lymph % (Auto) 37.8, [place] % (Auto) 5.9, Eos % (Auto) 2.2, Baso % (Auto) 3.2 H, Neut # (Auto) 6.8, Lymph # (Auto) 5.0 H, [place] # (Auto) 0.8, Eos # (Auto) 0.3, Baso # (Auto) 0.4 H 04/04/21 00:25: Sodium 139, Potassium 4.0, Chloride 104, Carbon Dioxide 25, Anion Gap 14.0, BUN 25 H, Creatinine 1.10, Estimated Creat Clear 118, Estimated GFR 68, Est GFR ( Amer) 82, Glucose 129 H, Calcium 9.4, Total Bilirubin 0.4, AST 43, ALT 58, Alkaline Phosphatase 74, Troponin I < 0.01, Total Protein 7.5, Albumin 4.7, Globulin 2.8, Albumin/Globulin Ratio 1.7 Result diagrams: 04/04/21 00:25 04/04/21 00:25 Orders (Tests/Meds): ED MEDICATIONS Discontinued Medications Generic Name Dose Route Start Last Admin Trade Name Freq PRN Reason Stop Dose Admin
--- NOTE | 2021-04-04 00:46 | XR_ITS ---
PROCEDURE INFORMATION: Exam: XR Chest Exam date and time: 04/04/2021 12:46 AM Age: 60 years old Clinical indication: Dyspnea; Sternal or substernal pain; Additional info: Dyspnea, chest pain TECHNIQUE: Imaging protocol: XR of the chest. Views: 1 view. COMPARISON: CR XR CHEST 2V 12/18/2020 12:17 PM FINDINGS: Lungs: Unremarkable. No consolidation. Pleural spaces: Unremarkable. No pleural effusion. No pneumothorax. Heart/Mediastinum: Unremarkable. No cardiomegaly. Bones/joints: Unremarkable. IMPRESSION: No acute findings.
[2021-04-04 00:54] LABS: Basophils # 0.4 K/mm3 (0-0.2); Basophils % 3.2 % (0.1-2.0); Eosinophils # 0.3 K/mm3 (0.0-0.4); Eosinophils % 2.2 % (0.1-12.0); Hematocrit 49.6 % (42.0-52.0); Hemoglobin 16.2 g/dL (14.1-18.0); Lymphocytes % 37.8 % (10-50); Mean Corpuscular HGB Conc 32.7 g/dL (31.8-35.4); Mean Corpuscular Hemoglobin 30.7 pg (27.0-31.2); Mean Corpuscular Volume 94.1 fl (80-94); Mean Platelet Volume 8.1 fl (7.4-10.4); Monocytes # 0.8 K/mm3 (0.1-1.0); Monocytes % 5.9 % (1.7-9.3); Neutrophils # 6.8 K/mm3 (1.8-7.8); Neutrophils % 50.9 % (37.0-80.0); Platelet Count 299 K/mm3 (142-424); Red Blood Count 5.28 M/mm3 (4.60-6.20); Red Cell Distribution Width 14.4 % (11.5-17.5); White Blood Count 13.3 K/mm3 (4.8-10.8)
[2021-04-04 01:00] VITALS: BP 98/64; PULSE 66; RESP 23; O2SAT 95
[2021-04-04 01:00] LABS: Alanine Aminotransferase 58 U/L (12-78); Albumin Level 4.7 g/dl (3.5-5.0); Albumin/Globulin Ratio 1.7 (1.1-1.8); Alkaline Phosphatase 74 U/L (38-126); Aspartate Amino Transferase 43 U/L (17-59); Bilirubin,Total 0.4 mg/dl (0.2-1.3); Blood Urea Nitrogen 25 mg/dl (9-20); Calcium 9.4 mg/dl (8.4-10.2); Carbon Dioxide 25 mmol/L (22.0-30.0); Chloride 104 mmol/L (98-107); Creatinine Clearance Estimated 118 mL/min (50-200); Estimated Glomerular Filt Rate 68 ml/min (>60); GFR (African American) 82 ML/MIN (>60); Globulin 2.8 g/dL (1.3-3.2); Glucose 129 mg/dl (74-100); Sodium 139 mmol/L (136-145); Total Protein,Serum 7.5 g/dl (6.3-8.2)
[2021-04-04 01:12] LABS: Troponin I < 0.01 ng/ml (0.00-0.034)
[2021-04-04 01:30] VITALS: BP 96/59; PULSE 65; RESP 17; O2SAT 95
[2021-04-04 02:08] VITALS: BP 116/68; PULSE 63; RESP 19; TEMP 36.7; O2SAT 96
== END 2021-04-04 02:10 | disposition home or self-care (01) ==
PROVIDERS: Emergency Provider Student in an Organized Health Care Education/Training Program; PCP Family Medicine
DX: R07.9 Chest pain, unspecified (principal); U07.1 COVID-19; E11.9 Type 2 diabetes mellitus without complications; I25.10 Atherosclerotic heart disease of native coronary artery without angina pectoris; E78.5 Hyperlipidemia, unspecified; I10 Essential (primary) hypertension; F17.210 Nicotine dependence, cigarettes, uncomplicated; Z95.5 Presence of coronary angioplasty implant and graft
CPT/HCPCS: 71045; 80053; 84484; 85025; 93005; 96365; 99283

== ENCOUNTER 2021-07-02 12:15 | Emergency (ER) | payer BC, SELFPAY ==
[2021-07-02 12:16] VITALS: BP 128/88; PULSE 116; RESP 18; TEMP 36.7; O2SAT 94; BMI 34.2
--- NOTE | 2021-07-02 12:27 | PC.NURSE ---
Addendum entered by Naila Yusuf 07/02/21 12:27: OMAR Staples at Original Note: ED MD at BS; daughter at BS
--- NOTE | 2021-07-02 12:33 | PC.NURSE ---
ED MD at
--- NOTE | 2021-07-02 12:38 | HMH.EDNVD ---
ED Disposition Clinical Impression: Gastroenteritis Disposition: Home, Self-Care Condition on Discharge: Good Instructions: DI for Nausea -- Adult, Diarrhea Additional Instructions: folow up PPC, return here for worse or any concerns Prescriptions: metroNIDAZOLE [metroNIDAZOLE 500mg Tablet] 500 mg PO TID #30 tab Transmission Status: Pending to [id number] Ondansetron [Zofran 4mg ODT] 4 mg PO TIDP PRN #30 tab PRN Reason: Nausea And Vomiting Transmission Status: Pending to [id number] Referrals: Mohinder Portillo MD [Primary Care Provider] - - Critical Care Critical Care Time: No Attestation: On 07/02/21, the high probability of a clinically significant, sudden or life threatening deterioration of the following system(s) required my full and direct attention, intervention and personal management. The time I documented below is in addition to time spent performing reported procedures but includes the following listed in this critical care notation. Medical Decision Making - Medical Records Medical records reviewed: Yes: I reviewed the patient's medical records. - Jorge Inquiry Pt receiving controlled substance: No Vital Signs: 07/02/21 12:16 07/02/21 13:03 07/02/21 13:46 Temperature 98.1 F Temperature Source Oral Pulse Rate 94 H 92 H Pulse Rate [Right Radial] 116 H Respiratory Rate 18 Blood Pressure 127/84 119/79 Blood Pressure [Right Arm] 128/88 Blood Pressure Mean [Right Arm] 101 Blood Pressure Source Automatic Cuff Automatic Cuff Blood Pressure Source [Right Arm] Automatic Cuff Blood Pressure Position Sitting Sitting Blood Pressure Position [Right Arm] Sitting 02 Sat by Pulse Oximetry 94 L 95 100 Oxygen Delivery Method Room Air Room Air Room Air 07/02/21 14:00 07/02/21 14:35 Temperature Temperature Source Pulse Rate 94 H 89 Pulse Rate [Right Radial] Respiratory Rate Blood Pressure 120/85 137/83 Blood Pressure [Right Arm] Blood Pressure Mean [Right Arm] Blood Pressure Source Automatic Cuff Automatic Cuff Blood Pressure Source [Right Arm] Blood Pressure Position Sitting Sitting Blood Pressure Position [Right Arm] 02 Sat by Pulse Oximetry 95 94 L Oxygen Delivery Method Room Air Room Air - Lab Data Lab Results 07/02/21 12:45: WBC 13.2 H, RBC 4.99, Hgb 16.3, Hct 47.8, MCV 95.9 H, MCH 32.7 H, MCHC 34.1, RDW 13.9, Plt Count 302, MPV 7.9, Neut % (Auto) 66.1, Lymph % (Auto) 24.1, [place] % (Auto) 7.5, Eos % (Auto) 1.7, Baso % (Auto) 0.6, Neut # (Auto) 8.7 H, Lymph # (Auto) 3.2, [place] # (Auto) 1.0, Eos # (Auto) 0.2, Baso # (Auto) 0.1 07/02/21 12:45: Sodium 136, Potassium 4.1, Chloride 105, Carbon Dioxide 19 L, Anion Gap 16.1 H, BUN 31 H, Creatinine 1.50 H, Estimated Creat Clear 86, Estimated GFR 48 L, Est GFR ( Amer) 58 L, Glucose 160 H, Calcium 9.3, Total Bilirubin 0.7, AST 31, ALT 32, Alkaline Phosphatase 95, Total Protein 7.4, Albumin 4.5, Globulin 2.9, Albumin/Globulin Ratio 1.6 07/02/21 13:54: Lactate 1.1 07/02/21 14:30: Urine Color Yellow, Urine Appearance Clear, Urine pH 6.0, Ur Specific [place] 1.025, Urine Protein Negative, Urine Glucose (UA) Negative, Urine Ketones Negative, Urine Blood Negative, Urine Nitrate Negative, Urine Bilirubin Negative, Urine Urobilinogen 0.2, Ur Leukocyte Esterase Negative Result diagrams: 07/02/21 12:45 07/02/21 12:45 Orders (Tests/Meds): ED MEDICATIONS Discontinued Medications Generic Name Dose Route Start Last Admin Trade Name Freq PRN Reason Stop Dose Admin Lactated Ringer's 1,000 mls @ 500 mls/hr 07/02/21 12:45 07/02/21 12:48 Lactated Ringer's 1000 Ml Bag IV 07/02/21 14:44 500 mls/hr .Q2H JOSUÉ Administration Metoclopramide HCl 10 mg 07/02/21 14:18 07/02/21 14:24 Metoclopramide Hcl 10mg/2ml Vial IVP 07/02/21 14:19 10 mg ONCE ONE Administration Ondansetron HCl 8 mg 07/02/21 14:18 07/02/21 14:24 Ondansetron 4mg/2ml Vial IV 07/02/21 14:19 8 mg ONCE
[2021-07-02 12:58] LABS: Basophils # 0.1 K/mm3 (0-0.2); Basophils % 0.6 % (0.1-2.0); Eosinophils # 0.2 K/mm3 (0.0-0.4); Eosinophils % 1.7 % (0.1-12.0); Hematocrit 47.8 % (42.0-52.0); Hemoglobin 16.3 g/dL (14.1-18.0); Lymphocytes # 3.2 K/mm3 (0.7-4.5); Lymphocytes % 24.1 % (10-50); Mean Corpuscular HGB Conc 34.1 g/dL (31.8-35.4); Mean Corpuscular Hemoglobin 32.7 pg (27.0-31.2); Mean Corpuscular Volume 95.9 fl (80-94); Mean Platelet Volume 7.9 fl (7.4-10.4); Monocytes % 7.5 % (1.7-9.3); Neutrophils # 8.7 K/mm3 (1.8-7.8); Neutrophils % 66.1 % (37.0-80.0); Platelet Count 302 K/mm3 (142-424); Red Blood Count 4.99 M/mm3 (4.60-6.20); Red Cell Distribution Width 13.9 % (11.5-17.5); White Blood Count 13.2 K/mm3 (4.8-10.8)
[2021-07-02 13:03] VITALS: BP 127/84; PULSE 94; O2SAT 95
[2021-07-02 13:08] LABS: Chloride 105 mmol/L (98-107); Potassium 4.1 mmoL/L (3.5-5.1); Sodium 136 mmol/L (136-145)
[2021-07-02 13:10] LABS: Alanine Aminotransferase 32 U/L (12-78); Aspartate Amino Transferase 31 U/L (17-59); Blood Urea Nitrogen 31 mg/dl (9-20); Creatinine Clearance Estimated 86 mL/min (50-200); Estimated Glomerular Filt Rate 48 ml/min (>60); GFR (African American) 58 ML/MIN (>60)
[2021-07-02 13:11] LABS: Albumin Level 4.5 g/dl (3.5-5.0); Albumin/Globulin Ratio 1.6 (1.1-1.8); Alkaline Phosphatase 95 U/L (38-126); Anion Gap 16.1 mEq/L (5-15); Bilirubin,Total 0.7 mg/dl (0.2-1.3); Calcium 9.3 mg/dl (8.4-10.2); Carbon Dioxide 19 mmol/L (22.0-30.0); Globulin 2.9 g/dL (1.3-3.2); Glucose 160 mg/dl (74-100); Total Protein,Serum 7.4 g/dl (6.3-8.2)
--- NOTE | 2021-07-02 13:25 | XR_ITS ---
FINAL REPORT CLINICAL HISTORY: sirs, r/o sepsis, cough, v/d, smoker COMPARISON: April 04, 2021 FINDINGS: The heart size is normal. The mediastinum is normal. There is mild right lung base atelectasis or scarring. There are no pleural effusions. There is no pneumothorax. There is no osseous abnormality. IMPRESSION: Mild right lung base atelectasis or scarring. Reviewed, Interpreted and Dictated by Miguel Jay III, MD Transcribed by Adalberto Pride Authenticated by Miguel Jay III, MD on 07/02/2021 02:49:00 PM [facility]
--- NOTE | 2021-07-02 13:42 | PC.NURSE ---
pt resting in bed, states no needs at this time.
--- NOTE | 2021-07-02 13:43 | PC.NURSE ---
contacted lab to come draw lactic acid
[2021-07-02 13:46] VITALS: BP 119/79; PULSE 92; O2SAT 100
[2021-07-02 14:00] VITALS: BP 120/85; PULSE 94; O2SAT 95
[2021-07-02 14:14] LABS: Lactic Acid 1.1 mmol/L (0.7-2.1)
--- NOTE | 2021-07-02 14:32 | PC.NURSE ---
pt to restroom to attempt to provide urine speciment
[2021-07-02 14:35] VITALS: BP 137/83; PULSE 89; O2SAT 94
[2021-07-02 14:40] LABS: Microscopic, Urine URINE MICROSCOPIC (MICROSCOPIC)
[2021-07-02 14:48] LABS: Appearance,Urine CLEAR (Clear); Bilirubin,Urine Negative (Negative); Blood, Urine Negative (Negative); Color,Urine YELLOW (Yellow); Glucose,Urine (UA) Negative (Negative); Ketones,Urine Negative (Negative); Leukocyte Esterase,Urine Negative (Negative); Nitrate,Urine Negative (Negative); Protein,Urine Negative (Negative); Specific Gravity, Urine 1.025 (1.005-1.030); Urobilinogen,Urine 0.2 EU/dl (0.2)
[2021-07-02 15:32] LABS: Squamous Epithelial Cell,Urine Occasional #/hpf (0-5)
[2021-07-02 15:36] VITALS: BP 125/79; PULSE 82; RESP 16; TEMP 36.7; O2SAT 100
== END 2021-07-02 15:36 | disposition home or self-care (01) ==
PROVIDERS: Emergency Provider Emergency Medicine; PCP Family Medicine
DX: R11.2 Nausea with vomiting, unspecified (principal); R19.7 Diarrhea, unspecified; I10 Essential (primary) hypertension; I25.10 Atherosclerotic heart disease of native coronary artery without angina pectoris; K21.9 Gastro-esophageal reflux disease without esophagitis; E78.5 Hyperlipidemia, unspecified; E11.9 Type 2 diabetes mellitus without complications; G43.909 Migraine, unspecified, not intractable, without status migrainosus; F17.210 Nicotine dependence, cigarettes, uncomplicated; Z79.02 Long term (current) use of antithrombotics/antiplatelets; Z79.1 Long term (current) use of non-steroidal anti-inflammatories (NSAID); Z79.82 Long term (current) use of aspirin; Z79.84 Long term (current) use of oral hypoglycemic drugs; Z79.899 Other long term (current) drug therapy; Z95.5 Presence of coronary angioplasty implant and graft; Z82.49 Family history of ischemic heart disease and other diseases of the circulatory system; Z80.9 Family history of malignant neoplasm, unspecified
CPT/HCPCS: 71045; 80053; 81001; 83605; 85025; 96374; 96375; 99285; J2405

== ENCOUNTER 2022-02-06 09:44 | Emergency (ER) | payer BC, SELFPAY ==
--- NOTE | 2022-02-06 10:44 | EXP.UTC ---
Discharge Plan Disposition Patient Disposition: Home, Self-Care Condition: Good Prescriptions Prescriptions: New azithromycin [Zithromax] 250 mg tablet 250 mg PO UD DOSE PK Qty: 6 0RF Rx Instructions: Take two (2) tablets today, then one (1) tablet days #2 thru #5 benzonatate [benzonatate] 100 mg capsule 100 mg PO TIDP PRN (Reason: Cough) Qty: 30 0RF methylprednisolone 4 mg Tablets,Dose Pack 4 mg PO DIRECTED Qty: 21 0RF No Action acetaminophen-codeine 300-30 mg tablet 1 tab PO TID PRN (Reason: pain) Qty: 45 1RF bupropion HCl 150 mg tablet sustained-release 12 hr See Rx Instructions .ROUTE .COMPLEX Qty: 60 5RF Dose Instruction: TAKE 1 TABLET BY MOUTH TWICE DAILY FOR DEPRESSION. START WITH TAKING 1 TABLET DAILY FOR 3 DAYS, THEN INCREASE TO 1 TABLET TWICE DAILY Rx Instructions: TAKE 1 TABLET BY MOUTH TWICE DAILY FOR DEPRESSION. START WITH TAKING 1 TABLET DAILY FOR 3 DAYS, THEN INCREASE TO 1 TABLET TWICE DAILY pantoprazole 40 mg tablet,delayed release (DR/EC) 40 mg PO DAILY Qty: 90 3RF furosemide 20 mg tablet See Rx Instructions .ROUTE .COMPLEX Qty: 30 5RF Dose Instruction: Take 1 tablet by mouth once daily Rx Instructions: Take 1 tablet by mouth once daily metoprolol succinate 100 mg tablet extended release 24 hr See Rx Instructions .ROUTE .COMPLEX Qty: 90 3RF Dose Instruction: Take 1 tablet by mouth once daily Rx Instructions: Take 1 tablet by mouth once daily atorvastatin 40 mg tablet See Rx Instructions .ROUTE .COMPLEX Qty: 90 1RF Dose Instruction: TAKE 1 TABLET BY MOUTH AT BEDTIME Rx Instructions: TAKE 1 TABLET BY MOUTH AT BEDTIME clopidogrel 75 mg tablet See Rx Instructions .ROUTE .COMPLEX Qty: 90 1RF Dose Instruction: Take 1 tablet by mouth once daily Rx Instructions: Take 1 tablet by mouth once daily nitroglycerin 0.4 mg tablet, sublingual See Rx Instructions .ROUTE .COMPLEX Qty: 25 4RF Dose Instruction: DISSOLVE ONE TABLET UNDER THE TONGUE EVERY 5 MINUTES NEEDED FOR CHEST PAIN. DO NOT EXCEED A TOTAL OF 3 DOSES IN 15 MINUTES Rx Instructions: DISSOLVE ONE TABLET UNDER THE TONGUE EVERY 5 MINUTES NEEDED FOR CHEST PAIN. DO NOT EXCEED A TOTAL OF 3 DOSES IN 15 MINUTES ranolazine [Ranexa] 1,000 mg tablet extended release 12 hr 1,000 mg PO BID Qty: 180 3RF famotidine 20 mg tablet See Rx Instructions .ROUTE .COMPLEX Qty: 30 5RF Dose Instruction: Take 1 tablet by mouth once daily Rx Instructions: Take 1 tablet by mouth once daily losartan 25 mg tablet 25 mg PO DAILY Qty: 90 3RF metformin 500 mg tablet See Rx Instructions .ROUTE .COMPLEX Qty: 180 0RF Dose Instruction: Take 1 tablet by mouth twice daily Rx Instructions: Take 1 tablet by mouth twice daily aspirin 81 MG tablet,chewable 81 mg PO DAILY ibuprofen 800 MG tablet 800 mg PO Q8HP PRN (Reason: Moderate Pain) Qty: 15 0RF ondansetron 4 MG tablet,disintegrating 4 mg PO TIDP PRN (Reason: Nausea And Vomiting) Qty: 30 0RF metronidazole 500 MG tablet 500 mg PO TID Qty: 30 0RF nicotine 1 EACH patch, TD daily, sequential 1 patch TRANSDERMA Q24H Referrals Follow up/Referrals: Mohinder Portillo MD [Primary Care Provider] - See instructions Activity Restrictions/Add. Instructions Additional Instructions/Restrictions: Drink plenty of fluids. Take tylenol or ibuprofen for pain or fever. Take the medications as directed. Follow up with your regular doctor. GO TO THE ER FOR ANY WORSENING SYMPTOMS Clinical Impressions Clinical Impression: Acute bronchitis, Acute viral syndrome Stand Alone Forms Stand Alone Forms: Work/School Release Discharge ED Provider: Richy Berger [facility] [place] General Stated complaint: body aches, stomach pain, lung pain Time Seen by Provider: 02/06/22 10:44 History of Present Illness Provider Complain
--- NOTE | 2022-02-06 10:46 | XR_ITS ---
FINAL REPORT CLINICAL HISTORY: cough,smoker COMPARISON: 07/02/2021 FINDINGS: Two views of the chest were obtained. The heart size and pulmonary vascularity are within normal limits. The mediastinum is normal. No acute pulmonary abnormality is identified. There is no pneumothorax. The bony thorax is intact. IMPRESSION: No active cardiopulmonary disease. Reviewed, Interpreted and Dictated by Miguel Jay III, MD Transcribed by Sarah Mahoney Authenticated and [facility]
[2022-02-06 10:54] VITALS: BP 123/66; PULSE 79; RESP 16; TEMP 37; O2SAT 96; BMI 34.2
[2022-02-06 11:45] VITALS: BP 123/66; PULSE 79; RESP 16; TEMP 37
[2022-02-06 11:51] LABS: Adenovirus,PCR Not Detected (NotDetected)
[2022-02-06 11:52] LABS: Bordetella Pertussis Not Detected (NotDetected); Chlamydophila Pneumoniae, PCR Not Detected (NotDetected); Coronavirus 19, PCR Not Detected (NotDetected); Coronavirus 229E Not Detected (NotDetected); Coronavirus NL63 Not Detected (NotDetected); Coronavirus OC43 Not Detected (NotDetected); Coronovirus HKU1,PCR Not Detected (NotDetected); Human Metapneumovirus Not Detected (NotDetected); Influenza A, PCR Not Detected (NotDetected); Influenza AH1, 2009 Not Detected (NotDetected); Influenza AH1, PCR Not Detected (NotDetected); Influenza AH3,PCR Not Detected (NotDetected); Influenza B, PCR Not Detected (NotDetected); Mycoplasma Pneumoniae, PCR Not Detected (NotDetected); Parainfluenza 1, PCR Not Detected (NotDetected); Parainfluenza 2, PCR Not Detected (NotDetected); Parainfluenza 3, PCR Not Detected (NotDetected); Parainfluenza 4, PCR Not Detected (NotDetected); Respiratory Syncytial Virus Not Detected (NotDetected); Rhinovirus/Enterovirus Not Detected (NotDetected)
== END 2022-02-06 11:46 | disposition home or self-care (01) ==
PROVIDERS: Emergency Provider Nurse Practitioner Family; PCP Family Medicine
DX: R10.9 Unspecified abdominal pain (principal); R07.9 Chest pain, unspecified; R11.2 Nausea with vomiting, unspecified; R07.1 Chest pain on breathing; Z20.822 Contact with and (suspected) exposure to COVID-19; M79.10 Myalgia, unspecified site; R05.9 Cough, unspecified; R53.81 Other malaise; F32.A Depression, unspecified; F17.210 Nicotine dependence, cigarettes, uncomplicated; Z79.1 Long term (current) use of non-steroidal anti-inflammatories (NSAID); Z79.02 Long term (current) use of antithrombotics/antiplatelets; Z79.899 Other long term (current) drug therapy; Z79.52 Long term (current) use of systemic steroids
CPT/HCPCS: 71046; 87581; 87632; 87798; 99213; C9803; G0463; U0003; U0005

== ENCOUNTER → 2022-02-28 14:41 | Outpatient (CLI) | payer BC, SELFPAY ==
[2022-02-28 15:13] LABS: Basophils # 0.1 K/mm3 (0-0.2); Basophils % 0.7 % (0.1-2.0); Eosinophils # 0.2 K/mm3 (0.0-0.4); Eosinophils % 2.1 % (0.1-12.0); Hematocrit 45.2 % (42.0-52.0); Hemoglobin 14.8 g/dL (14.1-18.0); Lymphocytes # 3.4 K/mm3 (0.7-4.5); Lymphocytes % 41.3 % (10-50); Mean Corpuscular HGB Conc 32.8 g/dL (31.8-35.4); Mean Corpuscular Hemoglobin 30.3 pg (27.0-31.2); Mean Corpuscular Volume 92.3 fl (80-94); Mean Platelet Volume 7.7 fl (7.4-10.4); Monocytes # 0.6 K/mm3 (0.1-1.0); Monocytes % 6.9 % (1.7-9.3); Platelet Count 262 K/mm3 (142-424); Red Cell Distribution Width 14.4 % (11.5-17.5); White Blood Count 8.2 K/mm3 (4.8-10.8)
[2022-02-28 15:49] LABS: Alanine Aminotransferase 25 U/L (12-78); Albumin Level 4.3 g/dl (3.5-5.0); Alkaline Phosphatase 70 U/L (38-126); Anion Gap 12.3 mEq/L (5-15); Aspartate Amino Transferase 24 U/L (17-59); Bilirubin,Direct 0.1 mg/dl (0.0-0.4); Bilirubin,Indirect 0.5 mg/dL (0.0-0.9); Bilirubin,Total 0.6 mg/dl (0.2-1.3); Bilirubin,Unconjugated 0.4 mg/dL (0.0-1.1); Blood Urea Nitrogen 16 mg/dl (9-20); Calcium 8.8 mg/dl (8.4-10.2); Carbon Dioxide 23 mmol/L (22.0-30.0); Chloride 109 mmol/L (98-107); Chol/HDL Ratio 3.2 (1-3.5); Cholesterol 108 mg/dl (140-200); Estimated Glomerular Filt Rate 76 ml/min (>60); GFR (African American) 92 ML/MIN (>60); Glucose 94 mg/dl (74-100); HDL Cholesterol 34 mg/dl (40-60); Magnesium 1.9 mg/dl (1.6-2.3); Potassium 4.3 mmoL/L (3.5-5.1); Sodium 140 mmol/L (136-145); Total Protein,Serum 6.7 g/dl (6.3-8.2); Triglycerides 76 mg/dl (30-150); VLDL Cholesterol 15 mg/dL (0-40)
[2022-02-28 16:00] LABS: Direct LDL Cholesterol 58.71 mg/dL (100-129)
[2022-02-28 16:05] LABS: Free T4 (Free Thyroxine) 0.87 ng/dl (0.78-2.19)
[2022-02-28 16:19] LABS: Thyroid Stimulating Hormone 1.71 uIU/mL (0.465-4.68)
== END ==
PROVIDERS: PCP Family Medicine; Visit Provider Internal Medicine Cardiovascular Disease
DX: I25.118 Atherosclerotic heart disease of native coronary artery with other forms of angina pectoris (principal); I10 Essential (primary) hypertension; E78.2 Mixed hyperlipidemia; I45.10 Unspecified right bundle-branch block; R94.30 Abnormal result of cardiovascular function study, unspecified; E66.9 Obesity, unspecified; Z68.33 Body mass index [BMI] 33.0-33.9, adult; Z79.84 Long term (current) use of oral hypoglycemic drugs; F17.209 Nicotine dependence, unspecified, with unspecified nicotine-induced disorders
CPT/HCPCS: 36415; 80048; 80061; 80076; 83735; 84439; 84443; 85025

== ENCOUNTER → 2022-03-10 11:17 | Outpatient (CLI) | payer BC, SELFPAY ==
--- NOTE | 2022-03-10 11:17 | NM_ITS ---
APPROVED REPORT Exam: Nuclear Stress Test Indication: Angina, SOB, Syncope, HTN, CAD, High cholesterol, DM, Tobacco use, Family history Patient Location: Outpatient Stress Tech: Hillary Ibarra [place] Tech:Stefania Sam, ARRT, RT (R)(N) Ht: 6 ft 1 in Wt: 257 lbs HR: 70 bpm BP: 113/78 mmHg BSA: 2.39 m2 TID: 1.09 BMI: 33.9 History: Angina, SOB, Syncope, HTN, CAD, High cholesterol, DM, Tobacco use, Family history Procedure: Patient received a 0.4 mg of intravenous Lexiscan, resting heart rate 70 bpm, resting blood pressure 113/78 mmHg, with Lexiscan maximum heart rate achived was 92 bpm which is Less than 85 % of the maximum predicted heart rate and blood pressure was 126/79 mmHg. With Lexiscan, patient denied any complaint of chest pain. Electrocardiogram Resting electrocardiogram shows sinus rhythm right bundle branch block, with Lexiscan there is less than 1.[address] segment depression noted from the baseline EKG. The EKG portion of the Lexiscan is nondiagnostic. Cardiac Stress and Resting SPECT Images: Cardiac Stress and Resting SPECT images were obtained using technetium 99m Myoview 29.7 mCi stress and 10.30 mCi at rest. Gated SPECT for analysis of segmental wall motion and calculation of the ejection fraction also done. Prone images were also obtained. Cardiac stress and resting SPECT images show decreased tracer activity in the inferior and posterior basal wall which improves on the resting images suggestive of reversible ischemia, computer derived ejection fraction is 49% with mild inferior wall hypokinesis, right ventricle is normal size and contractility. Conclusion: 1. The EKG portion of the Lexiscan is nondiagnostic. 2. Scintigraphic evidence of reversible ischemia involving the inferior and posterior basal wall, computer derived ejection fraction 49% with segmental wall motion abnormality described above, right ventricle is normal size and contractility. 3. Abnormal Lexiscan Myoview study. Electronically signed by : Ru Tenorio MD 03/11/2022 06:21:28
--- NOTE | 2022-03-10 13:23 | HMH.ITSHM ---
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 []RANOLAZINE OMEPRAZOLE NITRO METOPROLOL METFORMIN LOSARTAN FUROSEMIDE IBUPROFEN FAMOTIDINE CLOPIDOGREL VITAMIN D3 ATORVASTATIN ASA VITAMIN C
--- NOTE | 2022-03-10 13:31 | CA_ITS ---
APPROVED REPORT Exam: Pharmacologic Technologist: Hillary Nicole, Ht: 6 ft 1 in Wt: 257 lbs BSA: 2.39 m2 HR: 70 bpm BP: 113/78 mmHg Medical History Medications: Aspirin,,,,, Metformin,,,,, Vitamin C,,,,, Vitamin D3,,,,, Losartan,,,,, Atorvastatin,,,,, CloPIdogrel,,,,, Famotidine,,,,, Nitroglycerin,,,,, Ranexa,,,,, Furosemide,,,,, Metoproll succinate,,,,, Stress Test Details Test: LEXISCAN Reason for pharmacologic stress test: physical limitation. HR Resting HR: 70 bpm Max Heart Rate (APMHR): 158.751413 bpm Max HR Achieved: 92 bpm Target HR (85% APMHR): 134.368089 bpm % of APMHR: 58.23 Recovery HR: 81 bpm BP Resting BP: 113/78 mmHg Max BP: 126/79 mmHg Recovery BP: 126.0/79.0 mmHg ECG Resting ECG: NSR, RBBB Clinical Reason for Termination: Completed Protocol Exercise duration: 04:03 min Highest Stage Achieved: Exercise capacity: 1.0 METs Stress ECG Conclusion Symptoms: No Cp. Arrhythmias/Ectopy: None. ST-T Changes: <1.5mm ST Segment changes. Conclusion: Non-Diagnostic Test Summary REST . . . . . . . Resting REST 08:54 . . 70 . 113/ 78 . . Stage 1 01:00 . . 82 . . . . Stage 2 01:00 . . 88 . 112/ 72 . . Stage 3 01:00 . . 85 . 118/ 77 . . Stage 4 01:00 . . 83 . 118/ 78 . . Stage 4 01:03 . . 84 . 118/ 78 . Stop exercise at 04:03 RECOVERY 01:00 . . 83 . . . . RECOVERY 01:51 . . 81 . 126/ 79 . . Electronically signed by : Ru Tenorio MD 03/11/2022 06:18:13
== END ==
LOC: RAD 11:17
PROVIDERS: PCP Family Medicine; Visit Provider Internal Medicine Cardiovascular Disease
DX: I20.8 Other forms of angina pectoris (principal); I45.10 Unspecified right bundle-branch block; I10 Essential (primary) hypertension; E78.2 Mixed hyperlipidemia; F17.209 Nicotine dependence, unspecified, with unspecified nicotine-induced disorders
CPT/HCPCS: 78452; 93017; A9502; J2785

== ENCOUNTER 2022-03-20 07:51 | Day surgery (SDC) | payer BC, SELFPAY ==
[2022-03-20] VITALS (13 sets, daily range): BP systolic 107–161; BP diastolic 64–99; PULSE 69–98; RESP 18; TEMP 36.9; O2SAT 92–100; BMI 34.2
--- NOTE | 2022-03-20 | IR_ITS ---
APPROVED REPORT Patient Location: Outpatient Food Service Specialist: ROVERTO Musa RT (R) PROCEDURES Left heart catheterization Left ventriculogram Selective coronary angiogram INDICATION Abnormal Myoview, Angina pectoris Informed consent was obtained prior to the procedure. COMPLICATIONS None Estimated Blood Loss: Less than 10 ml TECHNIQUE One percent lidocaine used to anesthetize the right anterior aspect of the wrist. The right radial artery was accessed via the Seldinger technique. A 6 Tong[place] sheath was placed in the right radial artery. 2.5 mg of verapamil, 800 mcg of nitroglycerin, 1mg Lidocaine and 5000 U Heparin were given through the arterial sheath. The papa catheter was also used to perform left heart catheterization, left ventriculogram and selective coronary angiogram. At the end of the procedure the sheath was removed good hemostasis was achieved using Traclet band, patient was transferred to the postop holding area in stable condition. ANGIOGRAPHIC RESULTS The left main artery He has distal eccentric 10% stenosis The left anterior descending artery Has proximal and mid vessel 10 to 20% luminal irregularities The circumflex artery Is nondominant and has mild proximal and mid vessel 10% luminal regularities The right coronary artery Is a large dominant vessel and has stents in the proximal segment which are widely patent with minimal in-stent restenosis i with excellent proximal distal transitioning. The distal vessel has 10 to 20% luminal irregularity The GARCIA ventriculogram reveals Normal 65% The left ventricular end-diastolic pressure 15 mmHg IMPRESSION Widely patent stent in the dominant right coronary artery Mild nonflow limiting coronary disease otherwise as described above Normal ejection fraction Borderline LVEDP PLAN 1. Continue medical management Electronically signed by : Mikey Stephen MD 03/20/2022 10:32:24
[2022-03-20 08:11] LABS: Basophils # 0.1 K/mm3 (0-0.2); Basophils % 0.9 % (0.1-2.0); Eosinophils # 0.2 K/mm3 (0.0-0.4); Eosinophils % 1.4 % (0.1-12.0); Hematocrit 45.7 % (42.0-52.0); Hemoglobin 14.8 g/dL (14.1-18.0); Lymphocytes # 3.4 K/mm3 (0.7-4.5); Lymphocytes % 27.4 % (10-50); Mean Corpuscular HGB Conc 32.4 g/dL (31.8-35.4); Mean Corpuscular Hemoglobin 30.2 pg (27.0-31.2); Mean Corpuscular Volume 93.3 fl (80-94); Mean Platelet Volume 7.5 fl (7.4-10.4); Monocytes # 0.9 K/mm3 (0.1-1.0); Neutrophils # 7.9 K/mm3 (1.8-7.8); Neutrophils % 63.2 % (37.0-80.0); Platelet Count 313 K/mm3 (142-424); Red Cell Distribution Width 14.1 % (11.5-17.5); White Blood Count 12.4 K/mm3 (4.8-10.8)
[2022-03-20 08:15] LABS: Chloride 106 mmol/L (98-107); Potassium 3.8 mmoL/L (3.5-5.1); Sodium 142 mmol/L (136-145)
[2022-03-20 08:18] LABS: Anion Gap 13.8 mEq/L (5-15); Blood Urea Nitrogen 18 mg/dl (9-20); Calcium 9.1 mg/dl (8.4-10.2); Carbon Dioxide 26 mmol/L (22.0-30.0); Creatinine Clearance Estimated 128 mL/min (50-200); Estimated Glomerular Filt Rate 86 ml/min (>60); GFR (African American) 103 ML/MIN (>60); Glucose 138 mg/dl (74-100)
== END 2022-03-20 13:04 | disposition home or self-care (01) ==
PROVIDERS: PCP Family Medicine; Visit Provider Internal Medicine
DX: I25.118 Atherosclerotic heart disease of native coronary artery with other forms of angina pectoris (principal); R94.39 Abnormal result of other cardiovascular function study; E11.9 Type 2 diabetes mellitus without complications; F17.210 Nicotine dependence, cigarettes, uncomplicated; I10 Essential (primary) hypertension; E78.5 Hyperlipidemia, unspecified; I45.10 Unspecified right bundle-branch block; Z79.84 Long term (current) use of oral hypoglycemic drugs; Z79.899 Other long term (current) drug therapy
CPT/HCPCS: 36415; 80048; 85025; 93458; 99152; C1725; C1760; C1769; J1644; Q9967

== ENCOUNTER → 2022-08-13 15:08 | Outpatient (CLI) | payer BC, SELFPAY ==
--- NOTE | 2022-08-13 15:10 | CA_ITS ---
FINAL REPORT TECHNIQUE: Color Doppler, duplex Doppler and crawford scale sonography of the bilateral neck arterial vasculature was performed. Velocities were measured in the carotid arteries. Stenosis evaluation based on the validated velocity criteria. CLINICAL HISTORY: LOKESH,HTN,SMOKER,HLD FINDINGS: The peak systolic velocity of the right common carotid artery is 142.2 cm/s. The peak systolic velocity of the right internal carotid artery is 96.2 cm/s and end diastolic velocity 32 cm/s. A small amount of plaque is present. The right external carotid artery is patent. The right vertebral artery is patent with antegrade flow. The peak systolic velocity of the left common carotid artery is 113.3 cm/s. The peak systolic velocity of the left internal carotid artery is 100.5 cm/s and end diastolic velocity 32 cm/s. A small amount of plaque is present. The left external carotid artery is patent.The left vertebral artery is patent with antegrade flow. IMPRESSION: Less than 50% bilateral carotid stenoses. Bilateral patent vertebral arteries with antegrade flow. If indicated, CTA or MRA could further evaluate. Reviewed, Interpreted and Dictated by Miguel Jay III, MD Transcribed by Evangelina Blue Authenticated and [facility]
== END ==
LOC: RT 15:10
PROVIDERS: PCP Family Medicine; Visit Provider Nurse Practitioner Family
DX: I65.23 Occlusion and stenosis of bilateral carotid arteries (principal)
CPT/HCPCS: 93880

== ENCOUNTER 2022-12-19 10:00 | Emergency (ER) | payer BC, SELFPAY ==
[2022-12-19 10:02] VITALS: BP 143/84; PULSE 68; RESP 20; TEMP 37.1; O2SAT 98; BMI 34.2
--- NOTE | 2022-12-19 10:06 | ECG_ITS ---
APPROVED REPORT Exam: Resting ECG HR:67 bpm ECG Measurements Heart Rate 67 AXES DC 180 P 55 QRSd 157 QRS 64 QT 446 T 35 QTc 462 Conclusion SINUS RHYTHM RIGHT BUNDLE BRANCH BLOCK [120+ ms QRS DURATION, UPRIGHT V1, 40+ ms S IN I/aVL/V4/V5/V6] ABNORMAL ECG UNCONFIRMED REPORT Electronically signed by : Chance Wren MD 12/20/2022 10:39:51
--- NOTE | 2022-12-19 10:14 | XR_ITS ---
FINAL REPORT CLINICAL HISTORY: dyspnea, dizziness, congestion smoker COMPARISON: 02/06/2022 FINDINGS: SINGLE-VIEW CHEST The heart size is normal. The mediastinum is normal. The lungs are clear. There is no pneumothorax. IMPRESSION: No acute cardiopulmonary process. Reviewed, Interpreted and Dictated by Miguel Jay III, MD Transcribed by Sarah Mahoney Authenticated and [facility]
--- NOTE | 2022-12-19 10:16 | HMH.EDGENADL ---
Discharge Plan Disposition Patient Disposition: Home, Self-Care Prescriptions Prescriptions: New albuterol sulfate 90 mcg/actuation HFA aerosol inhaler 4 inh inhalation Q4H PRN (Reason: shortness of breath or wheezing) Qty: 8.5 0RF Rx Instructions: 4 puffs every 4 hours for 48 hours then as needed for shortness of breath or wheezing following amoxicillin-pot clavulanate 875-125 mg tablet 1 tab PO BID 7 Days Qty: 14 0RF benzonatate 100 mg capsule 100 mg PO TID PRN (Reason: cough) 5 Days Qty: 20 0RF No Action ascorbate calcium (vitamin C) 500 mg tablet 500 mg PO DAILY cholecalciferol (vitamin D3) 125 mcg (5,000 unit) capsule 125 mcg PO DAILY metformin 500 mg tablet 500 mg PO BID Qty: 180 3RF losartan 25 mg tablet 25 mg PO DAILY Qty: 90 3RF furosemide 20 mg tablet See Rx Instructions .ROUTE .COMPLEX Qty: 90 3RF Rx Instructions: Take 1 tablet by mouth once daily bupropion HCl [Wellbutrin XL] 150 mg tablet extended release 24 hr 150 mg PO DAILY Qty: 90 3RF atorvastatin 40 mg tablet See Rx Instructions .ROUTE .COMPLEX Qty: 90 3RF Rx Instructions: TAKE 1 TABLET BY MOUTH AT BEDTIME famotidine 20 mg tablet See Rx Instructions .ROUTE .COMPLEX Qty: 100 3RF Rx Instructions: Take 1 tablet by mouth once daily clopidogrel 75 mg tablet 75 mg PO DAILY Qty: 30 11RF metoprolol succinate 100 mg tablet extended release 24 hr 100 mg PO DAILY Qty: 90 3RF pantoprazole [Protonix] 40 mg tablet,delayed release (DR/EC) 40 mg PO DAILY Qty: 30 5RF aspirin 81 MG tablet,chewable 81 mg PO DAILY nitroglycerin 0.4 mg tablet, sublingual See Rx Instructions .ROUTE .COMPLEX Rx Instructions: DISSOLVE ONE TABLET UNDER THE TONGUE EVERY 5 MINUTES NEEDED FOR CHEST PAIN. DO NOT EXCEED A TOTAL OF 3 DOSES IN 15 MINUTES ranolazine [Ranexa] 1,000 mg tablet extended release 12 hr 1,000 mg PO BID Referrals Follow up/Referrals: Bari Espino MD [Primary Care Provider] - See instructions Joshua Feng MD [Physician] - See instructions Activity Restrictions/Add. Instructions Additional Instructions/Restrictions: Your presentation today was consistent with a COPD exacerbation. I highly recommend that you stop smoking as discussed. I have also given you referral to our kindergartner Dr. Feng. You may also follow-up with primary care doctor. Return with any worsening shortness of breath or other concerns. Clinical Impressions Clinical Impression: Acute exacerbation of chronic obstructive pulmonary disease, Encounter for smoking cessation counseling Discharge ED Provider: Romana Granados General Adult HPI General Chief complaint: Upper Respiratory Infection Stated complaint: cough,congested, some pain in chest Time Seen by Provider: 12/19/22 10:08 History of Present Illness HPI narrative: Patient is a 62-year-old male with a history of chronic smoking and known coronary artery disease does not carry a diagnosis of COPD presents with 8 days of cough fevers chills wheezing. Denies vomiting or diarrhea however he is nauseated after extensive coughing episodes. States that he had some chest discomfort but mainly with coughing. No exertional chest pain radiation diaphoresis etc. 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 Related Data Home Medications Medication Instructions Recorded Confirmed aspirin 81 mg chewable tablet 81 mg PO DAILY CAD 07/19/20 12/19/22 ascorbate calcium (vitamin C) 500 500 mg PO DAILY . 02/28/22 12/19/22 mg tablet cholecalciferol (vitamin D3) 125 125 mcg PO DAILY . 02/28/22 12/19/22 mcg (5,000 unit) capsule nitroglycerin 0.4 mg sublingual See Rx Instructions .Route 03/20/22 12/19/22 tablet .COMPLEX . ranolazine 1,000 mg 1,000 mg PO BID . 03/20/22 12/19/22 tablet,extended release,12 hr (Ranexa) Previous Rx's Medication Instructions Recorded b
[2022-12-19 10:23] LABS: Coronavirus 19, PCR Not Detected (NotDetected); Influenza A, PCR Not Detected (NotDetected); Influenza B, PCR Not Detected (NotDetected)
[2022-12-19 10:26] LABS: Chloride 103 mmol/L (98-107)
[2022-12-19 10:27] LABS: Potassium 4.3 mmoL/L (3.5-5.1); Sodium 138 mmol/L (136-145)
[2022-12-19 10:29] LABS: Alanine Aminotransferase 36 U/L (12-78); Alkaline Phosphatase 75 U/L (38-126); Aspartate Amino Transferase 34 U/L (17-59); Bilirubin,Total 0.6 mg/dl (0.2-1.3); Blood Urea Nitrogen 19 mg/dl (9-20); Creatinine Clearance Estimated 126 mL/min (50-200); Estimated Glomerular Filt Rate 75 ml/min (>60); GFR (African American) 91 ML/MIN (>60)
[2022-12-19 10:30] VITALS: BP 112/66; PULSE 64; RESP 18; O2SAT 98
[2022-12-19 10:30] LABS: Albumin Level 4.8 g/dl (3.5-5.0); Albumin/Globulin Ratio 1.6 (1.1-1.8); Anion Gap 11.3 mEq/L (5-15); Calcium 9.1 mg/dl (8.4-10.2); Carbon Dioxide 28 mmol/L (22.0-30.0); Glucose 133 mg/dl (74-100); Total Protein,Serum 7.8 g/dl (6.3-8.2)
[2022-12-19 10:40] LABS: Basophils # 0.1 K/mm3 (0-0.2); Basophils % 0.8 % (0.1-2.0); Eosinophils # 0.3 K/mm3 (0.0-0.4); Eosinophils % 2.1 % (0.1-12.0); Hematocrit 50.4 % (42.0-52.0); Hemoglobin 17.1 g/dL (14.1-18.0); Mean Corpuscular HGB Conc 33.9 g/dL (31.8-35.4); Mean Corpuscular Hemoglobin 32.6 pg (27.0-31.2); Mean Corpuscular Volume 96.1 fl (80-94); Mean Platelet Volume 7.8 fl (7.4-10.4); Monocytes # 0.7 K/mm3 (0.1-1.0); Monocytes % 5.6 % (1.7-9.3); Neutrophils # 6.8 K/mm3 (1.8-7.8); Neutrophils % 57.4 % (37.0-80.0); Platelet Count 231 K/mm3 (142-424); Red Blood Count 5.24 M/mm3 (4.60-6.20); Red Cell Distribution Width 13.7 % (11.5-17.5); White Blood Count 11.8 K/mm3 (4.8-10.8)
[2022-12-19 10:42] LABS: Troponin I < 0.01 ng/ml (0.00-0.034)
--- NOTE | 2022-12-19 10:51 | PC.NURSE ---
Dr. Granados at [facility] to update pt on POC
[2022-12-19 10:59] VITALS: BP 106/70; PULSE 68; RESP 17; TEMP 37; O2SAT 96
== END 2022-12-19 11:12 | disposition home or self-care (01) ==
PROVIDERS: Emergency Provider Student in an Organized Health Care Education/Training Program; PCP Emergency Medicine
DX: J44.1 Chronic obstructive pulmonary disease with (acute) exacerbation (principal); F17.210 Nicotine dependence, cigarettes, uncomplicated; I45.19 Other right bundle-branch block; I20.9 Angina pectoris, unspecified
CPT/HCPCS: 71045; 80053; 84484; 85025; 87636; 93005; 96365; 96374; 99284; J3475

== ENCOUNTER 2023-11-18 07:40 | Outpatient (CLI) | payer BC, SELFPAY ==
--- NOTE | 2023-11-18 | CA_ITS ---
APPROVED REPORT Exam: Pharmacologic Technologist: Samanta Ramirez, Ht: 6 ft 1 in Wt: 253 lbs BSA: 2.38 m2 HR: 62 bpm BP: 105/65 mmHg Rhythm: NSR, RBBB Indications: CP, CAD Medical History Medications: Aspirin,,,,, Metformin,,,,, Losartan,,,,, Atorvastatin,,,,, Albuterol,,,,, CloPIdogrel,,,,, Famotidine,,,,, Vit C,,,,, Nitroglycerin,,,,, Furosemide,,,,, BuPROPION HCI,,,,, Cardiac Risk Factors: HTN, Hyperlipidemia, Diabetes (non-insulin), Smoking Stress Test Details Test: LEXISCAN HR Resting HR: 64 bpm Max Heart Rate (APMHR): 157 bpm Max HR Achieved: 80 bpm Target HR (85% APMHR): 133 bpm % of APMHR: 51 Recovery HR: 75 bpm BP Resting BP: 105.0/65.0 mmHg Max BP: 126.0/70.0 mmHg Recovery BP: 126.0/70.0 mmHg ECG Resting ECG: NSR, RBBB Stress ECG: No significant ST changes Arrhythmia: None Clinical Exercise duration: 04:00 min Highest Stage Achieved: Exercise capacity: 1.0 METs Stress ECG Conclusion During the lexiscan pt experinced mild SOA, chest and stomach discomfort. No arrhythmias noted. No significant ST changes. Conclusion: Unremarkable lexiscan stress. Myoview images reported separately. Test Summary REST 01:47 . . 64 . 105/ 65 . . Stage 1 01:00 . . 74 . . . . Stage 2 01:00 . . 80 . 101/ 60 . . Stage 3 01:00 . . 77 . 108/ 63 . . Stage 4 01:00 . . 75 . 111/ 62 . Stop exercise at 04:00 RECOVERY 01:00 . . 77 . . . . RECOVERY 02:00 . . 75 . . . . RECOVERY 03:00 . . 75 . 126/ 70 . . RECOVERY 03:31 . . 74 . 119/ 72 . . Electronically signed by : Perla Blackmon MD 11/19/2023 13:26:43
--- NOTE | 2023-11-18 07:47 | NM_ITS ---
APPROVED REPORT Exam: Nuclear Stress Test Indication: Chest pain, SOB, HTN, DM, Tobacco use, CAD, Family history Patient Location: Outpatient Stress Tech: Samanta YANEZ Tech:Stefania Sam, ARRT, RT (R)(N) Ht: 6 ft 1 in Wt: 253 lbs HR: 64 bpm BP: 105/65 mmHg BSA: 2.38 m2 TID: 1.25 BMI: 33.3 History: Chest pain, SOB, HTN, DM, Tobacco use, CAD, Family history Procedure: Patient received 0.4 mg of intravenous Lexiscan, resting heart rate 64 bpm, resting blood pressure 105/65 mmHg, with Lexiscan maximum heart rate achieved was 80 bpm which is % of the maximum predicted heart rate and blood pressure was 126/70 mmHg. With Lexiscan, patient denied any complaint of chest pain. Cardiac Stress and Resting SPECT Images: Cardiac Stress and Resting SPECT images were obtained using technetium 99m Myoview 32.2 mCi stress and 10.57 mCi at rest. Resting and stress imaging in supine positions demonstrate a medium sized, moderate, fixed perfusion defect in the inferior LV wall. This is no longer visualized with prone stress imaging. Findings are suggestive of diaphragmatic attenuation. There is increase in transient ischemic dilatation ratio (TID 1.25), suggestive of possible multivessel disease or balanced ischemia. Gated imaging demonstrates normal global and regional LV systolic function. LVEF is calculated at 57%. Conclusion: Diaphragmatic attenuation is present. No evidence of focal fixed or reversible perfusion defects. There is increase in transient ischemic dilatation ratio (TID 1.25), suggestive of possible multivessel disease or balanced ischemia. Gated imaging demonstrates normal global and regional LV systolic function. LVEF is calculated at 57%. Electronically signed by : Perla Blackmon MD 11/19/2023 13:28:10
[2023-11-18] MEDS: ISOTOPE MYOVIEW (PER STUDY) 1 DOSE IV (09:18)
[2023-11-18] MEDS: REGADENOSON 0.4MG/5ML SYRINGE 0.4 MG IV (09:18)
[2023-11-18] MEDS: SODIUM CHLORIDE 0.9% 10ML SYR (RAD ONLY) 10 ML IV ×2 (09:18)
== END 2023-11-18 23:59 | disposition home or self-care (01) ==
LOC: RAD 07:42
PROVIDERS: Visit Provider Physician Assistant
DX: I25.118 Atherosclerotic heart disease of native coronary artery with other forms of angina pectoris (principal); R06.02 Shortness of breath
CPT/HCPCS: 78452; 93017; 93018; A9502; J2785

== ENCOUNTER 2023-11-20 07:48 | Outpatient (CLI) | payer BC, SELFPAY ==
--- NOTE | 2023-11-20 07:58 | CA_ITS ---
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 124.0 (50-130 cm/s) AO Peak GR. 6.20 mmHg AO Mean GR. 2.90 (<5 mmHg) AO VTI 24.9 (18-25 cm) ARON (VTI) 3.64 (2.5-4.5 cm2) Mitral Valve MV E Max Jatinder. 66.0 (40-130 cm/s) MV A Velocity 55.0 (40-130 cm/s) E/A Ratio 1.21 MV PHT 56.0 ms Pulmonary Valve PV Peak Velocity 47.0 (50-150 cm/s) Tricuspid Valve TR P. Velocity 208.00 cm/s RAP Estimate 10.00 mmHg RVSP 27.30 mmHg Left Ventricle The left ventricle is normal size. The left ventricular systolic function is normal. The left ventricular ejection fraction is within the normal range. There is increased LV wall thickness. There is normal LV segmental wall motion. The left ventricular diastolic function is normal. LVEF is 55%. Right Ventricle Right ventricle is mild to moderately dilated. The right ventricular systolic function is normal. Atria The left atrium size is normal. The right atrium is mildly dilated. There is no Doppler evidence of interatrial shunt. Aortic Valve The aortic valve is mildly thickened. There is no aortic valvular stenosis. Trace aortic regurgitation. Mitral Valve The mitral valve leaflets are mildly thickened. No evidence of mitral valve stenosis. Trace mitral regurgitation. Tricuspid Valve The tricuspid valve leaflets are thin and pliable. Trace tricuspid regurgitation. There is insufficient TR jet to estimate RVSP. Pulmonic Valve The pulmonary valve is normal in structure. Trace pulmonic regurgitation. Great Vessels The aortic root is normal in size. The ascending aorta is not well-visualized. IVC is normal in size and collapses >50% with inspiration. Pericardium There is no pericardial effusion. Other Information Study Quality: Fair Conclusion Normal biventricular systolic function. Mild to moderate RV dilation. Mild RA dilation. No significant valvular stenosis or regurgitation. Electronically signed by : Perla Blackmon MD 11/22/2023 21:41:40
== END 2023-11-20 23:59 | disposition home or self-care (01) ==
LOC: RT 07:50
PROVIDERS: PCP Family Medicine; Visit Provider Physician Assistant
DX: I25.118 Atherosclerotic heart disease of native coronary artery with other forms of angina pectoris (principal); R06.02 Shortness of breath
CPT/HCPCS: 93306

== ENCOUNTER 2024-04-25 13:26 | Emergency (ER) | payer BC, SELFPAY ==
--- NOTE | 2024-04-25 13:29 | HMH.EDGENADL ---
Discharge Plan Disposition Patient Disposition: Home, Self-Care Condition: Good Prescriptions Prescriptions: No Action ascorbate calcium (vitamin C) 500 mg tablet 500 mg PO DAILY cholecalciferol (vitamin D3) 125 mcg (5,000 unit) capsule 125 mcg PO DAILY varenicline tartrate [Chantix Starting Month Box] 0.5 mg (11)- 1 mg (42) tablets,dose pack See Rx Instructions PO PER PKG DIR Qty: 53 0RF Rx Instructions: take as directed atorvastatin 40 mg tablet See Rx Instructions .ROUTE .COMPLEX Qty: 90 3RF Rx Instructions: TAKE 1 TABLET BY MOUTH AT BEDTIME famotidine 20 mg tablet See Rx Instructions .ROUTE .COMPLEX Qty: 180 3RF Dose Instruction: Take 1 tablet by mouth once daily Rx Instructions: Take 1 tablet by mouth once daily metoprolol succinate 100 mg tablet extended release 24 hr See Rx Instructions .ROUTE .COMPLEX Qty: 90 3RF Dose Instruction: Take 1 tablet by mouth once daily Rx Instructions: Take 1 tablet by mouth once daily clopidogrel 75 mg tablet See Rx Instructions .ROUTE .COMPLEX Qty: 90 3RF Dose Instruction: Take 1 tablet by mouth once daily Rx Instructions: Take 1 tablet by mouth once daily pantoprazole 40 mg tablet,delayed release (DR/EC) See Rx Instructions .ROUTE .COMPLEX Qty: 90 3RF Dose Instruction: Take 1 tablet by mouth once daily Rx Instructions: Take 1 tablet by mouth once daily nitroglycerin 0.4 mg tablet, sublingual See Rx Instructions .ROUTE .COMPLEX Qty: 25 0RF Dose Instruction: DISSOLVE ONE TABLET UNDER THE TONGUE EVERY 5 MINUTES NEEDED FOR CHEST PAIN. DO NOT EXCEED A TOTAL OF 3 DOSES IN 15 MINUTES Rx Instructions: DISSOLVE ONE TABLET UNDER THE TONGUE EVERY 5 MINUTES NEEDED FOR CHEST PAIN. DO NOT EXCEED A TOTAL OF 3 DOSES IN 15 MINUTES isosorbide mononitrate 30 mg tablet extended release 24 hr See Rx Instructions .ROUTE .COMPLEX Qty: 90 3RF Dose Instruction: Take 1 tablet by mouth once daily Rx Instructions: Take 1 tablet by mouth once daily varenicline tartrate [Chantix Continuing Month Box] 1 mg tablet 1 mg PO BID 84 Days Qty: 168 3RF bupropion HCl 150 mg tablet extended release 24 hr See Rx Instructions .ROUTE .COMPLEX Qty: 30 0RF Dose Instruction: Take 1 tablet by mouth once daily Rx Instructions: Take 1 tablet by mouth once daily metformin 500 mg tablet See Rx Instructions .ROUTE .COMPLEX Qty: 60 0RF Dose Instruction: Take 1 tablet by mouth twice daily Rx Instructions: Take 1 tablet by mouth twice daily losartan 25 mg tablet See Rx Instructions .ROUTE .COMPLEX Qty: 30 0RF Dose Instruction: Take 1 tablet by mouth once daily Rx Instructions: Take 1 tablet by mouth once daily furosemide 20 mg tablet See Rx Instructions .ROUTE .COMPLEX Qty: 90 0RF Dose Instruction: Take 1 tablet by mouth once daily Rx Instructions: Take 1 tablet by mouth once daily ranolazine 1,000 mg tablet extended release 12 hr See Rx Instructions .ROUTE .COMPLEX Qty: 180 3RF Dose Instruction: Take 1 tablet by mouth twice daily Rx Instructions: Take 1 tablet by mouth twice daily aspirin 81 MG tablet,chewable 81 mg PO DAILY albuterol sulfate 90 mcg/actuation HFA aerosol inhaler 4 inh inhalation Q4H PRN (Reason: shortness of breath or wheezing) Qty: 8.5 0RF Rx Instructions: 4 puffs every 4 hours for 48 hours then as needed for shortness of breath or wheezing following Referrals Follow up/Referrals: Rajinder Chatman MD [Primary Care Provider] - See instructions Art,Karthikeyan Nguyen MD [Referring] - See instructions Activity Restrictions/Add. Instructions Additional Instructions/Restrictions: Please call to make your appointment with the urologist in [place] or one of your choice. If you have increasing pain swelling fever nausea vomiting inability to urinate at all return to the ER. Clinical Impressions Clinical Impression: Hydrocele Qualifiers: Hydrocele type: unspecified Qualified Code(s): N43.3 - Hydrocele, unspecified Stand Alone Forms Stand Alone Forms: Work/School Release Instructions Patient Instructions: DI for Urinary Tract Infection (UTI) Print Language Print Language: Maltese Discharge ED Provider: Eliazar Castaneda General Adult HPI <OLIVIA Alexander - Last Filed: 04/25/24 22:01> General Chief complaint: Urogenital-Male Stated complaint: Pain in testicles/ will discuss with Doctor Time Seen by Provider: 04/25/24 13:29 History of Present Illness HPI narrative: Patient presents for evaluation of scrotal swelling and pain. Patient reports that he has had increasing swelling in his scrotum but cannot give me an accurate specific date it which occurred although it has been for several weeks. However today began having more pain in his right testicle but denies fever chills hemoptysis hematochezia melena nausea vomit diarrhea. Patient also reports that he is having trouble starting his stream along with dribbling instead of ease of urination. He does not have a known history of BPH or bladder outlet obstruction. He denies any trauma fever chills shortness of breath nausea vomiting diarrhea hematuria or dysuria. Related Data Home Medications ?Medication ?Instructions ?Recorded ?Confirmed aspirin 81 mg chewable tablet 81 mg PO DAILY CAD 07/19/20 11/26/23 ascorbate calcium (vitamin C) 500 500 mg PO DAILY . 02/28/22 11/26/23 mg tablet cholecalciferol (vitamin D3) 125 125 mcg PO DAILY . 02/28/22 11/26/23 mcg (5,000 unit) capsule Previous Rx's ?Medication ?Instructions ?Recorded albuterol sulfate 90 mcg/actuation 4 inh inhalation Q4H PRN shortness 12/19/22 aerosol inhaler of breath or wheezing #8.5 grams atorvastatin 40 mg tablet See Rx Instructions .Route 08/06/23 .COMPLEX . #90 tabs famotidine 20 mg tablet See Rx Instructions .Route 08/10/23 .COMPLEX #180 tabs metoprolol succinate 100 mg See Rx Instructions .Route 10/12/23 tablet,extended release 24 hr .COMPLEX #90 tabs clopidogrel 75 mg tablet See Rx Instructions .Route 10/19/23 .COMPLEX #90 tabs nitroglycerin 0.4 mg sublingual See Rx Instructions .Route 10/19/23 tablet .COMPLEX #25 tabs pantoprazole 40 mg tablet,delayed See Rx Instructions .Route 10/19/23 release .COMPLEX #90 tabs varenicline tartrate 0.5 mg (11)-1 See Rx Instructions PO PER PKG DIR 11/26/23 mg (42) tablets in a dose pack #53 tabs (Chantix Starting Month Box) isosorbide mononitrate 30 mg See Rx Instructions .Route 02/08/24 tablet,extended release 24 hr .COMPLEX #90 tabs varenicline tartrate 1 mg tablet 1 mg PO BID 12 weeks #168 tabs 02/19/24 (Chantix Continuing Month Box) bupropion HCl 150 mg 24 hr tablet, See Rx Instructions .Route 03/04/24 extended release .COMPLEX #30 tabs metformin 500 mg tablet See Rx Instructions .Route 03/28/24 .COMPLEX #60 tabs losartan 25 mg tablet See Rx Instructions .Route 04/06/24 .COMPLEX #30 tabs furosemide 20 mg tablet See Rx Instructions .Route 04/07/24 .COMPLEX #90 tabs ranolazine 1,000 mg See Rx Instructions .Route 04/07/24 tablet,extended release,12 hr .COMPLEX #180 tabs Allergies Allergy/AdvReac Type Severity Reaction Status Date / Time No Known Allergies Allergy Verified 11/26/23 13:45 [facility] <OLIVIA Alexander - Last Filed: 04/25/24 22:01> [facility] Disclaimer: The information contained in this section may have been updated after the patient was seen, as this information can be updated by other users. Medical History Obstructive sleep apnea Diabetes mellitus type 2 in nonobese Cluster headache Plantar fasciitis Acute exacerbation of chronic obstructive pulmonary disease Chronic GERD Osteoarthritis thoracic spine Gastroenteritis Elevated left ventricular end-diastolic pressure (LVEDP) Right bundle branch block CAD (coronary artery disease) Hypertension Hyperlipidemia Angina pectoris Diaphoresis Typical angina Social History Smoking Status: Current every day smoker tobacco type: cigarettes packs per day: 1 alcohol intake: never substance use type: denies use current occupational status: employed Travel in the last 8 weeks: None household members: significant other and children housing: house current occupational exposures/hazards: No caffeine: Yes Have you lived/traveled outside [place] in past 30 days?: No Contact w/someone who lives/traveled outside US past 30 days?: No Exposure to someone with infectious disease in past 14 days?: No Do you have a fever (greater than 100.4 F or 38 C)?: No Have you tested positive for COVID-19: No Exposed to someone with COVID-19 in past 14 days?: No Do you have a sore throat?: No Do you have a cough?: No Do you have any weakness?: No Do you have any diarrhea?: No Are you experiencing any unusual bleeding?: No Do you have any muscle aches/pain?: No Do you have any abdominal pain?: No Are you experiencing loss of taste or smell?: No Other Medical History Have you received the Flu Vaccine for this season: Yes Have you received the Pneumonia Vaccine: Yes <OLIVIA Alexander - Last Filed: 04/25/24 22:01> ROS Obtained: Yes Systems reviewed as appropriate & no additional complaints except as documented Physical Exam <OLIVIA Alexander - Last Filed: 04/25/24 22:01> General General appearance: alert and in no apparent distress Respiratory Respiratory exam: Present normal lung sounds bilaterally Cardiovascular Cardiovascular exam: Present regular rate Neurological Exam Neurological exam: Present alert and oriented X3 Medical Decision Making <OLIVIA Alexander - Last Filed: 04/25/24 22:01> Medical Records Medical records reviewed: Yes I reviewed the patient's medical records. Screening: Per USPSTF and CDC recommendations, given the prevalence of disease in our region, it is our hospital?s policy to screen for HIV and viral Hepatitis for all patients aged 18 and over and those with ongoing risk factors. Jorge Inquiry Pt receiving controlled substance: No Vital Signs: 04/25/24 13:34 04/25/24 13:35 04/25/24 15:00 Temperature 97.8 F Temperature Source Oral Pulse Rate 75 67 Respiratory Rate 20 Blood Pressure 119/77 122/76 Blood Pressure [Left Arm] 138/97 H Blood Pressure Mean 84 Blood Pressure Mean [Left Arm] 110 Blood Pressure Source Blood Pressure Source [Left Arm] Automatic Cuff Blood Pressure Position [Left Arm] Sitting 02 Sat by Pulse Oximetry 95 95 95 Oxygen Delivery Method Room Air Room Air Room Air 04/25/24 15:43 Temperature 98.2 F Temperature Source Oral Pulse Rate 78 Respiratory Rate 18 Blood Pressure 121/77 Blood Pressure [Left Arm] Blood Pressure Mean Blood Pressure Mean [Left Arm] Blood Pressure Source Manual Cuff/ Palpation Blood Pressure Source [Left Arm] Blood Pressure Position [Left Arm] 02 Sat by Pulse Oximetry Oxygen Delivery Method Lab Data Lab results reviewed: Yes I reviewed the patient's lab results. Lab Results 04/25/24 13:15: Urine Color Yellow, Urine Appearance Clear, Urine pH 6.0, Ur Specific [place] 1.010, Urine Protein Negative, Urine Glucose (UA) Negative, Urine Ketones Negative, Urine Blood Negative, Urine Nitrate Negative, Urine Bilirubin Negative, Urine Urobilinogen 0.2, Ur Leukocyte Esterase Negative, Urine RBC None, Urine WBC None, Ur Squamous Epith Cells Occasional, Urine Bacteria Trace 04/25/24 14:08: WBC 12.4 H, RBC 4.87, Hgb 14.9, Hct 44.8, MCV 92.0, MCH 30.6, MCHC 33.3, RDW 13.3, Plt Count 226, MPV 9.3, Neut % (Auto) 48.4, Lymph % (Auto) 38.3, Dewey % (Auto) 9.9 H, Eos % (Auto) 2.2, Baso % (Auto) 0.4, Neut # (Auto) 6.0, Lymph # (Auto) 4.7 H, Dewey # (Auto) 1.2 H, Eos # (Auto) 0.3, Baso # (Auto) 0.1, Sodium 139, Potassium 3.8, Chloride 104, Carbon Dioxide 26, Anion Gap 12.8, BUN 16, Creatinine 0.90, Estimated Creat Clear 127, Estimated GFR 85, Est GFR ( Amer) 103, Glucose 105 H, Calcium 8.8, Total Bilirubin 0.6, AST 32, ALT 35, Alkaline Phosphatase 63, Total Protein 6.8, Albumin 4.4, Globulin 2.4, Albumin/Globulin Ratio 1.8, Procalcitonin 0.077, HCV Ab [place] w/Rflx PCR Qn Negative, HIV Ag/Ab Combo Qual Negative 04/25/24 14:08 04/25/24 14:08 Orders (Tests/Meds): ED MEDICATIONS Discontinued Medications Generic Name Dose Route Start Last Admin Trade Name Freq PRN Reason Stop Dose Admin Acetaminophen 1,000 mg 04/25/24 13:41 04/25/24 14:13 Acetaminophen 500mg Tab PO 04/25/24 13:42 1,000 mg ONCE ONE Administration Lactated Ringer's 1,000 mls @ 999 mls/hr 04/25/24 13:41 04/25/24 14:12 Lactated Ringer's 1000 Ml Bag IV 04/25/24 14:41 999 mls/hr .Q1H1M ONE Administration Iopamidol 75 ml 04/25/24 14:42 04/25/24 14:43 Iopamidol-370 (76%);100ml Bottle IV 04/25/24 14:43 75 ml ONCE ONE Administration Ketorolac Tromethamine 15 mg 04/25/24 13:41 04/25/24 14:13 Ketorolac 30mg/Ml Vial IV 04/25/24 13:42 15 mg ONCE ONE Administration Sodium Chloride 10 ml 04/25/24 14:42 04/25/24 14:44 Sodium Chloride 0.9% 10ml Syr (Rad Only) IV 05/25/24 14:41 10 ml NEEDED PRN Administration Maintain IV Site ORDERS Category Date Time Status CT abdomen pelvis w con Stat Cat Scan 04/25/24 13:43 Completed POCUS Point of Care (ER Only) Stat Exams 04/25/24 13:42 Completed CBC w/Auto Diff [Complete Blood Count Auto Diff] Stat Lab 04/25/24 14:08 Completed CMP [Comprehensive Metabolic Panel] Stat Lab 04/25/24 14:08 Completed HIV Combo Routine Lab 04/25/24 14:08 Completed Hepatitis C Ab Qual. W/ RFX Routine Lab 04/25/24 14:08 Completed Procalcitonin Stat Lab 04/25/24 14:08 Completed Urinalysis and Microscopic Routine Lab 04/25/24 13:15 Completed Medical Decision Narrative: In summary patient is a 63-year-old male who presents to the emergency department for evaluation of scrotal pain and swelling. Patient is hemodynamically stable upon arrival, afebrile. Physical exam is remarkable for an enlarged scrotum with very tender palpation of the scrotal contents however both testicles appear to be present but he has a very large what appears to be hydrocele on palpation on the right and to a lesser extent on the left. I do not feel any loops of bowel he has no abdominal rebound or guarding or rigidity with normal bowel sounds. There is no evidence of induration of the scrotal skin there is no erythema edema noted. External genitalia normal on appearance however the swelling has pushed his pannus up to where his penis retracts below the level of skin.. Differential diagnosis includes hydrocele versus varicocele versus hernia versus abscess etc. Initial workup will be conducted with hematologic labs CT scan abdomen pelvis POCUS urinalysis. Initial interventions include Toradol Tylenol. Initial workup reviewed by me and his hematologic labs are nonactionable though he does have a slightly elevated white count 12.4 which may be a leukemoid reaction the remainder of his hematologic labs showed no evidence of infection or inflammation his procalcitonin is 0.77 and urinalysis is bland. My informal interpretation of CT scan abdomen pelvis shows bilateral hydroceles, right greater than left and no other acute intra-abdominal pathology. POCUS reveals the patient has blood flow to both testicles without evidence of abscess.. Upon repeat evaluation patient reported modest improvement after initial intervention. Given this I have referred the patient to urology in [place] although [facility] and [facility] have to go to [place]. He is advised to follow-up with his PCP for any continued new or worsening signs or symptoms or to return to the ER as needed. <Eliazar Castaneda MD - Last Filed: 04/26/24 12:39> Vital Signs: 04/25/24 13:34 04/25/24 13:35 04/25/24 15:00 Temperature 97.8 F Temperature Source Oral Pulse Rate 75 67 Respiratory Rate 20 Blood Pressure 119/77 122/76 Blood Pressure [Left Arm] 138/97 H Blood Pressure Mean 84 Blood Pressure Mean [Left Arm] 110 Blood Pressure Source Blood Pressure Source [Left Arm] Automatic Cuff Blood Pressure Position [Left Arm] Sitting 02 Sat by Pulse Oximetry 95 95 95 Oxygen Delivery Method Room Air Room Air Room Air 04/25/24 15:43 Temperature 98.2 F Temperature Source Oral Pulse Rate 78 Respiratory Rate 18 Blood Pressure 121/77 Blood Pressure [Left Arm] Blood Pressure Mean Blood Pressure Mean [Left Arm] Blood Pressure Source Manual Cuff/ Palpation Blood Pressure Source [Left Arm] Blood Pressure Position [Left Arm] 02 Sat by Pulse Oximetry Oxygen Delivery Method Lab Data Lab Results 04/25/24 13:15: Urine Color Yellow, Urine Appearance Clear, Urine pH 6.0, Ur Specific [place] 1.010, Urine Protein Negative, Urine Glucose (UA) Negative, Urine Ketones Negative, Urine Blood Negative, Urine Nitrate Negative, Urine Bilirubin Negative, Urine Urobilinogen 0.2, Ur Leukocyte Esterase Negative, Urine RBC None, Urine WBC None, Ur Squamous Epith Cells Occasional, Urine Bacteria Trace 04/25/24 14:08: WBC 12.4 H, RBC 4.87, Hgb 14.9, Hct 44.8, MCV 92.0, MCH 30.6, MCHC 33.3, RDW 13.3, Plt Count 226, MPV 9.3, Neut % (Auto) 48.4, Lymph % (Auto) 38.3, Dewey % (Auto) 9.9 H, Eos % (Auto) 2.2, Baso % (Auto) 0.4, Neut # (Auto) 6.0, Lymph # (Auto) 4.7 H, Dewey # (Auto) 1.2 H, Eos # (Auto) 0.3, Baso # (Auto) 0.1, Sodium 139, Potassium 3.8, Chloride 104, Carbon Dioxide 26, Anion Gap 12.8, BUN 16, Creatinine 0.90, Estimated Creat Clear 127, Estimated GFR 85, Est GFR ( Amer) 103, Glucose 105 H, Calcium 8.8, Total Bilirubin 0.6, AST 32, ALT 35, Alkaline Phosphatase 63, Total Protein 6.8, Albumin 4.4, Globulin 2.4, Albumin/Globulin Ratio 1.8, Procalcitonin 0.077, HCV Ab [place] w/Rflx PCR Qn Negative, HIV Ag/Ab Combo Qual Negative Orders (Tests/Meds): ED MEDICATIONS Discontinued Medications Generic Name Dose Route Start Last Admin Trade Name Freq PRN Reason Stop Dose Admin Acetaminophen 1,000 mg 04/25/24 13:41 04/25/24 14:13 Acetaminophen 500mg Tab PO 04/25/24 13:42 1,000 mg ONCE ONE Administration Lactated Ringer's 1,000 mls @ 999 mls/hr 04/25/24 13:41 04/25/24 14:12 Lactated Ringer's 1000 Ml Bag IV 04/25/24 14:41 999 mls/hr .Q1H1M ONE Administration Iopamidol 75 ml 04/25/24 14:42 04/25/24 14:43 Iopamidol-370 (76%);100ml Bottle IV 04/25/24 14:43 75 ml ONCE ONE Administration Ketorolac Tromethamine 15 mg 04/25/24 13:41 04/25/24 14:13 Ketorolac 30mg/Ml Vial IV 04/25/24 13:42 15 mg ONCE ONE Administration Sodium Chloride 10 ml 04/25/24 14:42 04/25/24 14:44 Sodium Chloride 0.9% 10ml Syr (Rad Only) IV 05/25/24 14:41 10 ml NEEDED PRN Administration Maintain IV Site ORDERS Category Date Time Status CT abdomen pelvis w con Stat Cat Scan 04/25/24 13:43 Completed POCUS Point of Care (ER Only) Stat Exams 04/25/24 13:42 Completed CBC w/Auto Diff [Complete Blood Count Auto Diff] Stat Lab 04/25/24 14:08 Completed CMP [Comprehensive Metabolic Panel] Stat Lab 04/25/24 14:08 Completed HIV Combo Routine Lab 04/25/24 14:08 Completed Hepatitis C Ab Qual. W/ RFX Routine Lab 04/25/24 14:08 Completed Procalcitonin Stat Lab 04/25/24 14:08 Completed Urinalysis and Microscopic Routine Lab 04/25/24 13:15 Completed Medical Decision Narrative: In summary patient is a 63-year-old male who presents to the emergency department for evaluation of scrotal pain and swelling. Patient is hemodynamically stable upon arrival, afebrile. Physical exam is remarkable for an enlarged scrotum with very tender palpation of the scrotal contents however both testicles appear to be present but he has a very large what appears to be hydrocele on palpation on the right and to a lesser extent on the left. I do not feel any loops of bowel he has no abdominal rebound or guarding or rigidity with normal bowel sounds. There is no evidence of induration of the scrotal skin there is no erythema edema noted. External genitalia normal on appearance however the swelling has pushed his pannus up to where his penis retracts below the level of skin.. Differential diagnosis includes hydrocele versus varicocele versus hernia versus abscess etc. Initial workup will be conducted with hematologic labs CT scan abdomen pelvis POCUS urinalysis. Initial interventions include Toradol Tylenol. Initial workup reviewed by me and his hematologic labs are nonactionable though he does have a slightly elevated white count 12.4 which may be a leukemoid reaction the remainder of his hematologic labs showed no evidence of infection or inflammation his procalcitonin is 0.77 and urinalysis is bland. My informal interpretation of CT scan abdomen pelvis shows bilateral hydroceles, right greater than left and no other acute intra-abdominal pathology. POCUS reveals the patient has blood flow to both testicles without evidence of abscess.. Upon repeat evaluation patient reported modest improvement after initial intervention. Given this I have referred the patient to urology in [place] although [facility] and [place] have to go to [place]. He is advised to follow-up with his PCP for any continued new or worsening signs or symptoms or to return to the ER as needed. I was consulted by the ELLEN, and we discussed the complexity of the problems being addressed. I approve the treatment and management plan for this patient's care in the emergency department, thus performing a substantive portion of the medical decision making. Eliazar Castaneda MD Procedures <Eliazar Castaneda MD - Last Filed: 04/26/24 12:39> Limited Ultrasound Indication:: Scrotal swelling/pain. Possible testicular torsion Views:: Right hemiscrotum, right testicle, left hemiscrotum, left testicle Findings:: Large hypoechoic fluid collections surrounding both testicles, right greater than left. The testicles are hemogenous in appearance with arterial pulsatility on colorflow within both testicles. Interpretation:: No evidence of testicular torsion. Bilateral hydroceles Critical Care <OLIVIA Alexander - Last Filed: 04/25/24 22:01> Critical Care Time Critical Care Time: No
[2024-04-25 13:34] VITALS: BP 119/77; PULSE 75; O2SAT 95
[2024-04-25 13:35] VITALS: BP 138/97; RESP 20; TEMP 36.6; O2SAT 95; BMI 34.9
--- NOTE | 2024-04-25 13:43 | CT_ITS ---
FINAL REPORT TECHNIQUE: After the administration of intravenous contrast, axial images were obtained through the abdomen and pelvis by computed tomography. This study was performed with technique to keep radiation doses as low as reasonably achievable, (ALARA). Individualized dose reduction techniques using automated exposure control or adjustment of the MA and/or KV according to the patient's size were employed. CLINICAL HISTORY: Right scrotal pain and swelling right lower quadra FINDINGS: Abdomen: The lung bases are clear. The liver is normal in size and attenuation. The spleen and gallbladder are unremarkable. The adrenals are normal. The pancreas is unremarkable. The kidneys enhance appropriately. The aorta is normal in caliber. There is no free fluid or adenopathy. Bowel is unremarkable Pelvis: The appendix is normal. The urinary bladder and prostate are unremarkable. There is no free fluid or adenopathy. There are small bilateral inguinal hernias containing fat. Moderate bilateral hydroceles are seen, right greater than left. IMPRESSION: No upper urinary tract obstruction. Bilateral hydroceles. Reviewed, Interpreted and Dictated by Sudarshan Mac MD Transcribed by Trisha Lucas Authenticated and [facility]
--- NOTE | 2024-04-25 13:44 | PC.NURSE ---
PT IS CURRENTLY BEING TREATED AT THE DC FOR SSI. HE REPORTS THAT HE DOES NOT HAVE CURRENT THOUGHT OR PLANS TO HARM HIMSELF.
[2024-04-25] MEDS: LACTATED RINGERS 1000ML 1,000 ML 999 ML IV (14:12)
[2024-04-25] MEDS: ACETAMINOPHEN 500MG TAB 1000 MG PO (14:13)
[2024-04-25] MEDS: KETOROLAC 30MG/ML VIAL 15 MG IV (14:13)
[2024-04-25 14:17] LABS: Basophils # 0.1 K/mm3 (0-0.2); Basophils % 0.4 % (0.1-2.0); Eosinophils # 0.3 K/mm3 (0.0-0.4); Eosinophils % 2.2 % (0.1-12.0); Hematocrit 44.8 % (42.0-52.0); Hemoglobin 14.9 g/dL (14.1-18.0); Lymphocytes # 4.7 K/mm3 (0.7-4.5); Lymphocytes % 38.3 % (10-50); Mean Corpuscular HGB Conc 33.3 g/dL (31.8-35.4); Mean Corpuscular Hemoglobin 30.6 pg (27.0-31.2); Mean Platelet Volume 9.3 fl (7.4-10.4); Monocytes # 1.2 K/mm3 (0.1-1.0); Monocytes % 9.9 % (1.7-9.3); Neutrophils % 48.4 % (37.0-80.0); Platelet Count 226 K/mm3 (142-424); Red Blood Count 4.87 M/mm3 (4.60-6.20); Red Cell Distribution Width 13.3 % (11.5-17.5); White Blood Count 12.4 K/mm3 (4.8-10.8)
[2024-04-25 14:30] LABS: Albumin Level 4.4 g/dl (3.5-5.0); Chloride 104 mmol/L (98-107); Potassium 3.8 mmoL/L (3.5-5.1); Sodium 139 mmol/L (136-145)
[2024-04-25 14:33] LABS: Alanine Aminotransferase 35 U/L (12-78); Albumin/Globulin Ratio 1.8 (1.1-1.8); Alkaline Phosphatase 63 U/L (38-126); Anion Gap 12.8 mEq/L (5-15); Aspartate Amino Transferase 32 U/L (17-59); Bilirubin,Total 0.6 mg/dl (0.2-1.3); Blood Urea Nitrogen 16 mg/dl (9-20); Calcium 8.8 mg/dl (8.4-10.2); Carbon Dioxide 26 mmol/L (22.0-30.0); Creatinine Clearance Estimated 127 mL/min (50-200); Estimated Glomerular Filt Rate 85 ml/min (>60); GFR (African American) 103 ML/MIN (>60); Globulin 2.4 g/dL (1.3-3.2); Glucose 105 mg/dl (74-100); Total Protein,Serum 6.8 g/dl (6.3-8.2)
[2024-04-25] MEDS: IOPAMIDOL-370 (76%);100ML BOTTLE 75 ML IV (14:43)
[2024-04-25] MEDS: SODIUM CHLORIDE 0.9% 10ML SYR (RAD ONLY) 10 ML IV (14:44)
[2024-04-25 15:00] VITALS: BP 122/76; PULSE 67; O2SAT 95
[2024-04-25 15:29] LABS: HIV Combo NEGATIVE (Negative)
[2024-04-25 15:31] LABS: Procalcitonin 0.077 ng/mL (0.0-2.0)
[2024-04-25 15:36] LABS: Hepatitis C Ab Qual. W/ RFX NEGATIVE (Negative)
[2024-04-25 15:43] VITALS: BP 121/77; PULSE 78; RESP 18; TEMP 36.8; O2SAT 98
--- NOTE | 2024-04-25 15:43 | PC.NURSE ---
collected urine, sent to lab.
[2024-04-25 15:48] LABS: Microscopic, Urine URINE MICROSCOPIC (MICROSCOPIC)
[2024-04-25 17:51] LABS: Appearance,Urine CLEAR (Clear); Bilirubin,Urine Negative (Negative); Blood, Urine Negative (Negative); Color,Urine YELLOW (Yellow); Glucose,Urine (UA) Negative (Negative); Ketones,Urine Negative (Negative); Leukocyte Esterase,Urine Negative (Negative); Nitrate,Urine Negative (Negative); Protein,Urine Negative (Negative); Urobilinogen,Urine 0.2 EU/dl (0.2)
[2024-04-25 18:04] LABS: Bacteria,Urine Trace /lpf; Squamous Epithelial Cell,Urine Occasional #/hpf (0-5)
== END 2024-04-25 15:45 | disposition home or self-care (01) ==
PROVIDERS: Physician Assistant; Emergency Provider Student in an Organized Health Care Education/Training Program; PCP Family Medicine
DX: N43.3 Hydrocele, unspecified (principal); N50.819 Testicular pain, unspecified; F17.210 Nicotine dependence, cigarettes, uncomplicated
CPT/HCPCS: 74177; 80053; 81001; 84145; 85025; 86803; 87389; 96361; 96374; 99285; J1885; J7120; Q9967

== ENCOUNTER 2024-06-17 07:49 | Day surgery (SDC) | payer BC, SELFPAY ==
[2024-06-17] VITALS (12 sets, daily range): BP systolic 93–129; BP diastolic 54–79; PULSE 61–76; RESP 16–20; TEMP 36.8–37; O2SAT 94–95; BMI 35.3
--- NOTE | 2024-06-17 07:06 | IR_ITS ---
APPROVED REPORT Patient Location: Outpatient PROCEDURES Left heart catheterization Left ventriculogram Selective coronary angiogram INDICATION Abnormal Myoview, Preoperative evaluation, Known coronary artery disease Informed consent was obtained prior to the procedure. COMPLICATIONS NONE Estimated Blood Loss: LESS THAN 10 ML TECHNIQUE One percent lidocaine used to anesthetize the right anterior aspect of the wrist. The right radial artery was accessed via the Seldinger technique. A 6 [place] sheath was placed in the right radial artery. 2.5 mg of Verapamil, 800 mcg of nitroglycerin, 1mg Lidocaine and 5000 U Heparin were given through the arterial sheath. The 6 [place] JL 3 guide catheter was also used to perform left heart catheterization, left ventriculogram and selective coronary angiogram. At the end of the procedure the sheath was removed good hemostasis was achieved using Traclet band, patient was transferred to the postop holding area in stable condition. ANGIOGRAPHIC RESULTS The left main artery Has a distal eccentric 10 to 20% stenosis The left anterior descending artery Has a stent in the ostial proximal segment which is widely patent free of in-stent restenosis with excellent proximal distal transitioning. There is a mid vessel concentric 30% stenosis The circumflex artery Nondominant with mild 10% luminal regularities The right coronary artery Large and dominant with a stent in the proximal segment which is widely patent free of in-stent restenosis with excellent proximal distal transitioning. Distally 20 and 30% stenosis The GARCIA ventriculogram reveals Not performed The left ventricular end-diastolic pressure Not measured IMPRESSION Widely patent proximal LAD stent Mild nonflow limiting coronary artery disease PLAN 1. Patient is a low and acceptable risk from a cardiac standpoint to proceed with elective herniorrhaphy 2. Continue medical management and risk factor modification for coronary artery disease Electronically signed by : Mikey Stephen MD 06/17/2024 10:07:36
[2024-06-17 08:26] LABS: Basophils % 0.3 % (0.1-2.0); Eosinophils # 0.3 Kmm3 (0.0-0.4); Eosinophils % 2.4 % (0.1-12.0); Hematocrit 46.8 % (42.0-52.0); Hemoglobin 15.4 g/dL (14.1-18.0); Lymphocytes # 4.5 K/mm3 (0.7-4.5); Lymphocytes % 38.9 % (10-50); Mean Corpuscular HGB Conc 32.9 g/dL (31.8-35.4); Mean Corpuscular Hemoglobin 30.4 pg (27.0-31.2); Mean Corpuscular Volume 92.3 fl (80-94); Mean Platelet Volume 9.4 fl (7.4-10.4); Monocytes % 8.3 % (1.7-9.3); Neutrophils # 5.8 K/mm3 (1.8-7.8); Neutrophils % 49.7 % (37.0-80.0); Nucleated Red Blood Cells # 0 10^3/uL; Nucleated Red Blood Cells % 0 %; Platelet Count 237 K/mm3 (142-424); Red Blood Count 5.07 M/mm3 (4.60-6.20); Red Cell Distribution Width 13.8 % (11.5-17.5); Red Cell Distribution Width-SD 46.8 fL; White Blood Count 11.6 K/mm3 (4.8-10.8)
[2024-06-17 08:42] LABS: Chloride 105 mmol/L (98-107); Potassium 3.9 mmoL/L (3.5-5.1); Sodium 142 mmol/L (136-145)
[2024-06-17 08:45] LABS: Blood Urea Nitrogen 19 mg/dl (9-20); Creatinine Clearance Estimated 128 mL/min (50-200); Estimated Glomerular Filt Rate 75 ml/min (>60); GFR (African American) 91 ML/MIN (>60)
[2024-06-17 08:46] LABS: Anion Gap 17.9 mEq/L (5-15); Calcium 9.2 mg/dl (8.4-10.2); Carbon Dioxide 23 mmol/L (22.0-30.0); Glucose 126 mg/dl (74-100)
[2024-06-17] MEDS: HEPARIN 1,000 UNITS/500ML NS (CATH LAB) 3000 UNIT IV (09:27)
[2024-06-17] MEDS: HEPARIN 1,000 UNITS/ML 10ML VIAL (CATH LAB) 5000 UNIT IV (09:27)
[2024-06-17] MEDS: VERAPAMIL 2.5MG/ML 2ML VIAL 2.5 MG IV (09:27)
[2024-06-17] MEDS: 0.9 % SODIUM CHLORIDE 500 ML 25 ML IV (09:28)
[2024-06-17] MEDS: diphenhydrAMINE 50MG/ML VIAL 50 MG IV (09:28)
[2024-06-17] MEDS: LIDOCAINE 1% 10ML MDV 10 ML IJ (09:28)
[2024-06-17] MEDS: FENTANYL 100MCG/2ML VIAL 50 MCG IV (09:55)
[2024-06-17] MEDS: MIDAZOLAM HCL 1MG/ML 5ML VIAL 1 MG IV (09:55)
[2024-06-17] MEDS: IOPAMIDOL-370 (76%);100ML BOTTLE 50 ML IV (10:21)
== END 2024-06-17 13:07 | disposition home or self-care (01) ==
PROVIDERS: PCP Family Medicine; Visit Provider Internal Medicine
DX: I25.118 Atherosclerotic heart disease of native coronary artery with other forms of angina pectoris (principal); I10 Essential (primary) hypertension; E11.9 Type 2 diabetes mellitus without complications; F17.210 Nicotine dependence, cigarettes, uncomplicated; Z79.84 Long term (current) use of oral hypoglycemic drugs; Z79.899 Other long term (current) drug therapy; K21.9 Gastro-esophageal reflux disease without esophagitis; J44.9 Chronic obstructive pulmonary disease, unspecified; E78.5 Hyperlipidemia, unspecified; R06.02 Shortness of breath; I45.10 Unspecified right bundle-branch block; G47.33 Obstructive sleep apnea (adult) (pediatric); G44.029 Chronic cluster headache, not intractable; Z91.85 Personal history of military service; R45.851 Suicidal ideations
CPT/HCPCS: 80048; 85025; 93458; 99152; C1725; C1760; C1769; J1200; J1644; J3010; Q9967